=== PATIENT | female | born 1975 | race Caucasian/White ===

== ENCOUNTER 2018-10-13 13:23 | Observation (INO) | payer OTHER ==
--- OUTSIDE RECORDS SUMMARY | 2018-10-13 13:35 | XMS REPORT ---
:1975 Author Organization [facility] Address [address] [place] [address] Dr. George [address] [place] [address] Care Team Providers Name Role Phone Unavailable Unavailable Unavailable Problems This patient has no known problems. Allergies, Adverse Reactions, Alerts This patient has no known allergies or adverse reactions. Medications This patient has no known medications.
[2018-10-13 15:27] LABS: Absolute Lymphocytes (CBC) 3.3 K/uL (0.7-4.9); Basophils % 0.5 % (0-1.3); Eosinophils % 0.5 % (0-4.4); Hematocrit 41.9 % (36.0-45.0); Lymphocytes % 24.8 % (15.3-44.8); Monocytes % 7.3 % (3.3-12.3); RBC Red Blood Cell Count 4.66 M/uL (3.86-4.86)
[2018-10-13 15:41] LABS: Potassium 3.4 mmol/L (3.5-5.1)
[2018-10-13] MEDS ORDERED: ALBUTEROL 2.5 MG/3 ML NEB SOL IH PRN (15:42)
[2018-10-13] MEDS ORDERED: ONDANSETRON 4 MG/2 ML VIAL IV PRN (15:43)
[2018-10-13] MEDS ORDERED: CODEINE 30MG/APAP 300MG TAB PO PRN (15:46)
[2018-10-13 16:08] LABS: Urine Appearance CLEAR; Urine Bilirubin NEGATIVE (NEG); Urine Blood NEGATIVE (NEG); Urine Color YELLOW; Urine Glucose NEGATIVE (NEG); Urine Microscopic Reflex NO UMIC; Urine Protein NEGATIVE (NEG); Urine Specific Gravity >=1.030 (1.005-1.030); Urine Urobilinogen 0.2 mg/dL (0.2-1.0); Urine pH 5.5 (5.0-7.0)
[2018-10-13] MEDS: AZITHROMYCIN 500 MG/250 ML BAG IV SCH (16:50)
[2018-10-13] MEDS: METHYLPREDNISOLONE 125 MG INJ IV SCH (16:50)
[2018-10-13] MEDS: IPRATROPIUM BROM 0.5MG/2.5ML IH PRN ×2 (17:35→20:35)
--- NOTE | 2018-10-13 19:41 | EKG ---
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
[2018-10-13] MEDS: LEVALBUTEROL 1.25 MG/3 ML NEB NEB PRN (20:35)
[2018-10-13] MEDS: HYDROCODONE/CHLORPHEN 5 ML/OSYR PO SCH (20:45)
[2018-10-13] MEDS ORDERED: PHENOL 1.4% ORAL SPRAY 180ML MM PRN (21:36)
[2018-10-13] MEDS: TEMAZEPAM 15 MG CAP PO PRN (22:11)
[2018-10-14] MEDS: METHYLPREDNISOLONE 125 MG INJ IV SCH ×2 (00:15→08:57)
[2018-10-14] MEDS: AZITHROMYCIN 500 MG/250 ML BAG IV SCH ×3 (00:15→17:51)
[2018-10-14] MEDS ORDERED: LEVALBUTEROL 1.25 MG/3 ML NEB NEB SCH (02:00)
[2018-10-14] MEDS: HYDROCODONE/CHLORPHEN 5 ML/OSYR PO SCH ×2 (08:53→20:33)
[2018-10-14] MEDS: METOPROLOL TAR 25 MG TAB PO SCH (08:54)
[2018-10-14] MEDS: PREGABALIN 50 MG CAP PO SCH (08:54)
[2018-10-14] MEDS: IPRATROPIUM BROM 0.5MG/2.5ML IH PRN ×2 (11:55→21:14)
[2018-10-14] MEDS: LEVALBUTEROL 1.25 MG/3 ML NEB NEB PRN ×2 (11:55→21:14)
--- NOTE | 2018-10-14 19:13 | PN ---
Date of Progress Note: 10/14/2018 Subjective: Patient feels somewhat better today. She is still having cough, is mainly nonproductive . She denies dyspnea. Appetite has improved. She remained afebrile and sputum is in the process of being cultured. Depending on the results, I am going to repeat chest x-ray and CBC in the morning. The patient could be discharged on outpatient antibiotics. HR/MODL Voice ID: [id number] Report ID: [id number]
[2018-10-14] MEDS: TEMAZEPAM 15 MG CAP PO PRN (20:34)
[2018-10-15] MEDS: AZITHROMYCIN 500 MG/250 ML BAG IV SCH (01:00)
[2018-10-15 04:21] LABS: Absolute Lymphocytes (CBC) 2.5 K/uL (0.7-4.9); Basophils % 0.1 % (0-1.3); Lymphocytes % 15.7 % (15.3-44.8); MPV 8.6 fL (7.6-11.3); Monocytes % 8.3 % (3.3-12.3); RBC Red Blood Cell Count 3.98 M/uL (3.86-4.86)
[2018-10-15 04:29] LABS: BUN Blood Urea Nitrogen 13 mg/dL (7-18); Bicarbonate 28 mmol/L (21-32); Glucose Level 108 mg/dL (74-106); Potassium 3.9 mmol/L (3.5-5.1); Sodium Level 140 mmol/L (136-145)
[2018-10-15] MEDS: HYDROCODONE/CHLORPHEN 5 ML/OSYR PO SCH (08:14)
[2018-10-15] MEDS: PREGABALIN 50 MG CAP PO SCH (08:15)
[2018-10-15] MEDS: METOPROLOL TAR 25 MG TAB PO SCH (08:15)
--- NOTE | 2018-10-15 08:30 | HP ---
Date of Admission: 10/13/2018 Entrance Complaint: Cough, general malaise. History Of Present Illness: The patient presented to the office in the last week with the above-outl ined symptoms. The patient had called and placed on steroids and an inhaler and then I sa w her and placed her on antibiotics. However, her symptoms continued to increase and chest x-ray the day of admission showed pneumonia and was therefore decided to admit her. Past History: The patient has a long history of asthmatic bronchitis requiring inhalers. However, s he has never been hospitalized as such. Social History: She quit smoking about 6 years ago. Family History: Noncontributory. Social History: Noncontributory. Physical Examination: General: Patient is a middle-aged female with marked spasmodic cough with stable vital signs. Head and Neck: Normocephalic. HEENT: Pupils equal, reactive to light and accommodation. Fundi negative. Trachea midline. Thyroi d not palpable. ENT negative. Chest: High-pitched rhonchi both bases. Adequate air entry and movement bilaterally. Cardiovascular: PMI midclavicular line. Heart: Sounds normal. Peripheral pulses are present and equal bilaterally. Abdomen: No organomegaly. Bowel sounds present. Extremities: Slightly dehydrated. Good tone and movement bilaterally. Reflexes physiologic. Rectal and Pelvic: Deferred. Impression: 1.Pneumonia. 2.Dehydration. Plan: Patient will be admitted placed on IV antibiotics, IV inhalation therapy. HR/MODL Voice ID: [id number]
--- NOTE | 2018-10-15 08:31 | RAD REPORT ---
EXAM DESCRIPTION: RAD - Chest Pa And Lat (2 Views) - 10/15/2018 8:06 am CLINICAL HISTORY: Pneumonia, cough COMPARISON: October 13 TECHNIQUE: PA and lateral views of the chest were obtained. FINDINGS: The lungs are slightly underinflated. Right base stranding is still present. This could be persistent atelectasis or persistent minimal pneumonia. Heart size is normal and central vasculatu re is within normal limits. No pleural effusion or pneumothorax seen. No acute bony finding noted. No aortic abnormality. IMPRESSION: Stable chest examination. No change to the infiltrate or atelectasis changes in the righ t base.
[2018-10-15] MEDS: LEVALBUTEROL 1.25 MG/3 ML NEB NEB PRN (14:55)
[2018-10-15] MEDS: IPRATROPIUM BROM 0.5MG/2.5ML IH PRN (14:55)
[2018-10-15 17:20] VITALS: BMI 29.8
[2018-10-15 17:38] VITALS: BP 107/67; TEMP 97.6
[2018-10-15 17:57] VITALS: O2SAT 98
--- NOTE | 2018-10-15 23:59 | PN ---
The patient states she feels much better today. Her cough has improved significantly. No significan t change in the x-ray. Possibility of this being a chronic change with superimposed bronchial infect ion versus pneumonia was considered. Cultures negative at the present time. She can be discharged o n Zithromax. Continue on her inhaler. She will be seen in the office on Saturday for followup. Disch arged on Zithromax 500 mg p.o. and the albuterol inhaler. HR/MODL Voice ID: [id number] Report ID: [id number]
[2018-10-16] MEDS ORDERED: AZITHROMYCIN IV 500 MG in NA CHLORIDE 0.9% 250 ML IVPB SCH (01:00)
[2018-10-16] MEDS ORDERED: PANTOPRAZOLE 40MG TABLET PO SCH (15:13)
== END 2018-10-15 17:18 | disposition home or self-care (01) ==
LOC: 4TH 13:33
PROVIDERS: ADMIT Family Medicine; ATTEND Family Medicine
DX: J18.9 Pneumonia, unspecified organism (principal); E86.0 Dehydration; Z87.891 Personal history of nicotine dependence
CPT/HCPCS: 36415; 71046; 80048; 81003; 85025; 87070; 87077; 87186; 87205; 93005; 94640; G0378; G0379; J0456; J2930

== ENCOUNTER 2019-12-13 11:07 | Emergency (ER) | payer OTHER ==
--- OUTSIDE RECORDS SUMMARY | 2019-12-13 11:09 | XMS REPORT | Continuity of Care Document ---
:1975 Author Organization [facility] t Address [address] [place] [address] Care Team Providers Name Role Phone Ila Jiang MD Attending Clinician Problems This patient has no known problems. Allergies, Adverse Reactions, Alerts This patient has no known allergies or adverse reactions. Medications This patient has no known medications. Procedures This patient has no known procedures. Encounters Start End Encounter Admission Attending Care Care Encounter Source Date/Time Date/Time Type Type Clinicians Facility Department ID 2019-11-11 2019-11-11 Office MATTHEW Jiang [id number] 15:55:12 16:22:35 Visit [facility] [id number] Surgical [id number] Specialti [id number] [address] [place] Results This patient has no known results.
--- OUTSIDE RECORDS SUMMARY | 2019-12-13 11:09 | XMS REPORT | Summary of Care ---
:1975 Author Organization [facility] - [facility] Address [address] [place] [address] Care Team Providers Name Role Phone Martha Primary Care Provider Reason for Visit Reason Comments Follow-up Ankle Pain right ankle Encounter Details Date Type Department Care Team Description 11/11/2019 Office Visit [facility] Orthopaedic Delmar Jiang ight ankle pain, Surgery- Shilpi Thorpe MD unspecified chronicity [address], [address] (Primary Dx) [address] [place] [address] [place], [place] [phone] Allergies Active Allergy Reactions Severity Noted Date Comments Avocado Anaphylaxis, Hives, Swelling High 02/19/2018 Latex Rash 01/14/2015 documented as of this encounter (statuses as of 11/12/2019) Medications Medication Sig Dispensed Refills Start Date End Date Status omeprazole 40 mg capsule 1 03/20/2016 Active oxybutynin (DITROPAN XL) Take 1 tablet by 30 tablet 3 07/26/19 18 Active 10 mg 24 hr tablet mouth daily. LYRICA 50 mg capsule TAKE ONE CAPSULE 2 01/31/2018 Active BY MOUTH TWICE A DAY metoprolol (LOPRESSOR) Take by mouth 2 0 Active 10 mg/mL oral suspension (two) times daily. methylPREDNISolone 4 mg Take by mouth 21 Each 0 05/31/2018 Active tabletsIndications: SEE-INSTRUCTIONS Colitis . follow package directions dicyclomine (BENTYL) 20 Take 1 tablet by 20 tablet 0 9 Active mg tabletIndications: mouth 4 (four) Colitis times daily. documented as of this encounter (statuses as of 11/12/2019) Active Problems Problem Noted Date Right knee pain 04/18/2016 documented as of this encounter (statuses as of 11/12/2019) Social History Tobacco Use Types Packs/Day Years Used Date Former Smoker Smokeless Tobacco: Never Used Qu it: 08/13/2012 Alcohol Use Drinks/Week oz/Week Comments Yes 0 Standard drinks or equivalent 0.0 socailly Sex Assigned at Date Recorded Not on file Job Start Date Occupation Industry Not on file Not on file Not on file Travel History Travel Start Travel End No recent travel history available. COVID-19 Exposure Response Date Recorded In the last month, have you been in contact with No / Unsure 11/11/2019 2:19 PM CDT someone who was confirmed or suspected to have Coronavirus / COVID-19? documented as of this encounter Last Filed Vital Signs Vital Sign Reading Time Taken Comments Blood Pressure 132/89 11/11/2019 3:57 PM CDT Pulse - - Temperature - - Respiratory Rate 18 11/11/2019 3:57 PM CDT Oxygen Saturation - - Inhaled Oxygen Concentration - - Weight 83.9 kg (185 lb) 11/11/2019 3:57 PM CDT Height 165.1 cm (5' 5") 11/11/2019 3:57 PM CDT Body Mass Index 30.79 11/11/2019 3:57 PM CDT documented in this encounter Progress Notes Delmar Jiang MD - 11/11/2019 4:15 PM CDT Cc: Chief Complaint Patient presents with Follow-up Ankle Pain right ankle Nehal Snow is a 43 year old female. Ankle Pain Incident onset: 11/05/2019. [facility]: [facility] The injury mechanism was a twisting injury. The pain is present in the right ankle. The quality of the pain is described as aching and burning. The pain is at a severity of 6/10. The pain is moderate. The pain has been intermittent since onset. Associated symptoms include a loss of motion and muscle weakness. The symptoms are aggravated by movement and weight bearing. She has tried non-weight bearing, rest, elevation, ice and heat for the symptoms. The treatment provided mild relief. Allergies Nehal is allergic to avocado and latex. Medications Outpatient Medications Prior to Visit Medication Sig Dispense Refill dicyclomine (BENTYL) 20 mg tablet Take 1 tablet by mouth 4 (four) times daily. 20 tablet 0 methylPREDNISolone 4 mg tablets Take by mouth SEE-INSTRUCTIONS. follow package directions 21 Each 0 LYRICA 50 mg capsule TAKE ONE CAPSULE BY MOUTH TWICE A DAY 2 metoprolol (LOPRESSOR) 10 mg/mL oral suspension Take by mouth 2 (two) times daily. oxybutynin (DITROPAN XL) 10 mg 24 hr tablet Take 1 tablet by mouth daily. 30 tablet 3 omeprazole 40 mg capsule 1 No facility-administered medications prior to visit. Histories Past Medical History: Diagnosis Date Abnormal uterine bleeding Anxiety Breast disorder Depression Endometriosis Female infertility GERD (gastroesophageal reflux disease) HTN (hypertension) Hypothyroid Leiomyoma of uterus Pap smear abnormality of cervix 1997 Right knee pain 04/18/2016 Trauma Urinary incontinence Past Surgical History: Procedure Laterality Date ENDOMETRIAL ABLATION 10/2010 with Essure HYSTERECTOMY 06/2014 Social History Socioeconomic History Marital status: Spouse name: Not on file Number of children: Not on file Years of education: Not on file Highest education level: Not on file Occupational History Not on file Social Needs Financial resource strain: Not on file Food insecurity: Worry: Not on file Inability: Not on file Transportation needs: Medical: Not on file Non-medical: Not on file Tobacco Use Smoking status: Former Smoker Smokeless tobacco: Never Used Substance and Sexual Activity Alcohol use: Yes Alcohol/week: 0.0 standard drinks Comment: socailly Drug use: No Sexual activity: Yes Partners: Male, Female control/protection: Surgical Comment: Polyamourous relationship with third female Lifestyle Physical activity: Days per week: Not on file Minutes per session: Not on file Stress: Not on file Relationships Social connections: Talks on phone: Not on file Gets together: Not on file Attends [employer] service: Not on file Active member of club or organization: Not on file Attends meetings of clubs or organizations: Not on file Relationship status: Not on file Intimate partner violence: Fear of current or ex partner: Not on file Emotionally abused: Not on file Physically abused: Not on file Forced sexual activity: Not on file Other Topics Concern Not on file Social History Narrative No domestic abuse or violence. Family History Problem Relation Age of Onset Arthritis Mother Hypertension Mother High cholesterol Mother Hypertension Father High cholesterol Father Diabetes Maternal Grandmother Heart Maternal Grandmother High cholesterol Maternal Grandmother High cholesterol Maternal Grandfather Neurological Maternal Grandfather High cholesterol Paternal Grandmother Diabetes Paternal Grandfather High cholesterol Paternal Grandfather Diabetes Brother Asthma Brother Psychiatry Brother defects NoFHx Breast Cancer NoFHx Colon Cancer NoFHx Ovarian Cancer NoFHx Uterine Cancer NoFHx Cancer NoFHx Depression NoFHx Genetic NoFHx Mental retardation NoFHx Osteoporosis NoFHx Review of Systems Constitutional: Negative. HENT: Negative. Eyes: Negative. Respiratory: Negative. Breasts: Negative. Cardiovascular: Negative. Gastrointestinal: Negative. Genitourinary: Negative. Musculoskeletal: Positive for myalgias. Skin: Negative. Neurological: Negative. Psychiatric/Behavioral: Negative. Endocrine: Endocrine negative Vital Signs There were no vitals taken for this visit. Physical Exam Musculoskeletal: Right ankle: She exhibits decreased range of motion and ecchymosis. She exhibits no deformity, no laceration and normal pulse. Tenderness. AITFL tenderness found. General: Well-developed well-nourished oriented to person place and time HEENT normocephalic atraumatic atraumatic pupils equal round reactive to light extraocular muscles intact Cervical thoracic and lumbar spine without focal deficit normal kyphosis and lordosis Chest clear to auscultation and percussion Cardiovascular regular rate and rhythm without gallop rub or murmur soft without organomegaly Normal bowel sounds Neurologic: Focal myotome or dermatomal deficits Vascular: Intact symmetrical bilateral upper and lower extremities Skin without stasis varicosities or breakdown Extremities without cyanosis clubbing or edema Lymphatics no peripheral lymphedema Psych normal mood and affect. Neurovascular function is intact. To include brisk capillary refill warm pink skin active motor function and sensory function intact. Nursing note and vitals reviewed. Assessment/Plan Right Ankle Sprain Patient placed into cast boot and instructed to wear it for 3 weeks only removing to bathe. Follow up 3 weeks. documented in this encounter Plan of Treatment Date Type Specialty Care Team Description 12/03/2019 Office Visit Orthopedic Surgery Luma Jiang MD [address] [phone] Health Maintenance Due Date Last Done Comments DTaP,Tdap,and Td Vaccines (1 12/30/1987 - Tdap) Depression Screening 1988 Breast Cancer Screening 07/10/2018 07/10/2017, (MAMMOGRAM) 01/16/2010 INFLUENZA VACCINE (#1) 2019 PNEUMOCOCCAL 0-64 YEARS Aged Out No longe r eligible based COMBINED SERIES on patient's age to complete this to [facility] documented as of this encounter Results Not on filedocumented in this encounter Visit Diagnoses Diagnosis Right ankle pain, unspecified chronicity - Primary documented in this encounter aric Sarah (Home) [place] [address] (Work) documented as of this encounter
--- OUTSIDE RECORDS SUMMARY | 2019-12-13 11:09 | XMS REPORT | Summary of Care ---
:1975 Author Organization [facility] Address [address] [place] [address] Care Team Providers Name Role Phone Martha Primary Care Provider Reason for Referral Radiology Services (Routine) Status Reason Specialty Diagnoses / Referred By Referred To Procedures Contact Contact New Request Diagnostic Diagnoses Right ankle pain, unspecified chronicity Delmar Jiang Radiology Procedures XR ANKLE 3+ VW RIGHT Ila MD [address] [place] [address] Reason for Visit Reason Comments Xray RIGHT ANKLE Encounter Details Date Type Department Care Team Description 11/11/2019 Telephone [facility] Orthopaedic Delmar Jiang , Xray (RIGHT ANKLE ) Surgery- Shilpi CALL [address] [facility] [address] [place] [address] [address] [place], [place] [phone] Allergies Active Allergy Reactions Severity Noted Date Comments Avocado Anaphylaxis, Hives, Swelling High 02/19/2018 Latex Rash 01/14/2015 documented as of this encounter (statuses as of 11/11/2019) Medications Medication Sig Dispensed Refills Start Date [...] as of this encounter (statuses as of 11/11/2019) Active Problems Problem Noted Date Right knee pain 04/18/2016 documented as of this encounter (statuses as of 11/11/2019) Social History Tobacco Use Types Packs/Day Years [...] Travel End No recent travel history available. documented as of this encounter Last Filed Vital Signs Not on filedocumented in this encounter Plan of Treatment Date Type Specialty Care Team Description 11/11/2019 Office Visit Orthopedic Surgery Luma Jiang MD [address] [phone] Name Type Priority Associated Diagnoses Order S chedule XR ANKLE 3+ VW RIGHT IMAGING Routine Right ankle pain, Ex pected: 11/11/2019, unspecified chronicity Expir es: 11/10/2020 Health Maintenance Due Date Last Done Comments DTaP,Tdap,and Td Vaccines (1 12/30/1987 - Tdap) Depression Screening 1988 Breast Cancer Screening 07/10/2018 07/10/2017, (MAMMOGRAM) 01/16/2010 INFLUENZA VACCINE (#1) 2019 PNEUMOCOCCAL 0-64 YEARS Aged Out No longe r eligible based COMBINED SERIES on patient's age to complete this to [facility] documented as of this encounter Results Not on filedocumented in this encounter Visit Diagnoses Diagnosis Right ankle pain, unspecified chronicity - Primary documented in this encounter Insurance Payer Benefit Plan / Group Subscriber ID Effective Dates Phone Address Type [place] II [id number] 2017-Present HMO /PPO/POS documented as of this encounter
--- OUTSIDE RECORDS SUMMARY | 2019-12-13 11:09 | XMS REPORT | Summary of Care ---
:1975 Author Organization [facility] Address [address] [place] [address] Care Team Providers Name Role Phone Martha Primary Care Provider Reason for Referral Radiology Services (Routine) Status Reason Specialty Diagnoses / Referred By Referred To Procedures Contact Contact Closed Diagnostic Diagnoses Right ankle pain, unspecified chronicity Delmar Jiang Radiology Procedures XR ANKLE 3+ VW RIGHT MD Ila [address] [place] [address] Reason for Visit Radiology Services (Routine) Status Reason Specialty Diagnoses / Referred By Referred To Procedures Contact Contact Closed Diagnostic Diagnoses Right ankle pain, unspecified chronicity Delmar Jiang Radiology Procedures XR ANKLE 3+ VW RIGHT MD Ila [address] [place] [address] Encounter Details Date Type Department Care Team Description 11/11/2019 Hospital Encounter [facility] Tristan Jiang Arrived [place] [facility] [address] [place] [address] Dr merida [address] [place] [address] [address] [phone] [place] [address] Allergies Active Allergy Reactions Severity Noted [...] Office Visit Orthopedic Surgery Luma Jiang MD [address] [phone] Health Maintenance Due Date Last Done Comments DTaP,Tdap,and Td Vaccines (1 12/30/1987 - Tdap) Depression Screening 1988 Breast Cancer Screening 07/10/2018 07/10/2017, (MAMMOGRAM) 01/16/2010 INFLUENZA VACCINE (#1) 2019 PNEUMOCOCCAL 0-64 YEARS Aged Out No longe r eligible based COMBINED SERIES on patient's age to complete this to pic documented as of this encounter Procedures Procedure Name Priority Date/Time Associated Diagnosis Comme nts XR ANKLE 3+ VW Routine 11/11/2019 2:45 PM Right ankle pain, R esults for this RIGHT CDT unspecified procedure are i n chronicity the results section. documented in this encounter Results XR ANKLE 3+ VW RIGHT (11/11/2019 2:45 PM CDT) Specimen Narrative Performed At HISTORY: Pain. PACS/VR/DOSE FINDINGS: AP, lateral, oblique views of right ankle are obtained and compared to 08/02/2018 study. Ankle mortise is intact. No talar dome lesion visualized. No acute fracture or disloca tion. No significant changes of arthritis or aggressive bone lesions seen. No ankle [place] int effusion. No heel spur. CONCLUSIONS: Normal study. Procedure Note [facility], Radiant Results Inft User - 2019 2:47 PM CDT HISTORY: Pain. FINDINGS: AP, lateral, oblique views of right ankle are obtained and compared to 08/02/2018 study. Ankle morti se is intact. No talar dome lesion visualized. No acute fracture or disloca tion. No significant changes of arthritis or aggressive bone lesions see n. No ankle joint effusion. No heel spur. CONCLUSIONS: Normal study. Performing Organization Address City/State/Zipcode Phone Number PACS/VR/DOSE documented in this encounter Visit Diagnoses Diagnosis Right ankle pain, unspecified chronicity documented in this encounter aric Sarah (Home) [place] [address] (Work) documented as of this encounter
--- OUTSIDE RECORDS SUMMARY | 2019-12-13 11:09 | XMS REPORT | Summary of Care ---
:1975 Author Organization [facility] Address [address] [place] [address] Care Team Providers Name Role Phone Martha Primary Care Provider Reason for Visit Reason Comments Follow-up Ankle Pain right ankle Encounter Details Date Type Department Care Team Description 11/11/2019 Office Visit [facility] Orthopaedic Delmar Jiang ight ankle pain, Surgery- Shilpi Thorpe MD unspecified chronicity [address], [address] (Primary [address]x) [place] [address] [place] [address] [address] [place], [place] [phone] Allergies Active Allergy Reactions Severity Noted Date [...] Incident onset: 11/05/2019. Incident location: [facility] The injury mechanism was a twisting injury. [...] file Gets together: Not on file Attends gnosticist service: Not on file Active member of [...] Orthopedic Surgery Luma Jiang MD [address] [phone] Health Maintenance Due Date Last Done Comments DTaP,Tdap,and Td Vaccines (1 12/30/1987 - Tdap) Depression Screening 1988 Breast Cancer Screening 07/10/2018 07/10/2017, (MAMMOGRAM) 01/16/2010 INFLUENZA VACCINE (#1) 2019 PNEUMOCOCCAL 0-64 YEARS Aged Out No longe r eligible based COMBINED SERIES on patient's age to complete this to [facility] documented as of this encounter Results Not on filedocumented in this encounter Visit Diagnoses Diagnosis Right ankle pain, unspecified chronicity - Primary documented in this encounter aric Sarah (Home) [place] [address] (Work) documented as of this encounter
[2019-12-13 11:42] LABS: Absolute Lymphocytes (CBC) 2.1 K/uL (0.7-4.9); Basophils % 0.5 % (0-1.3); Hematocrit 38.5 % (36.0-45.0); Lymphocytes % 29.8 % (15.3-44.8); MPV 8.6 fL (7.6-11.3); RBC Red Blood Cell Count 4.33 M/uL (3.86-4.86)
[2019-12-13 11:46] LABS: Protime INR 0.98
[2019-12-13 12:08] LABS: ALT/SGPT 33 U/L (12-78); AST/SGOT 18 U/L (15-37); Albumin 3.4 g/dL (3.4-5.0); Alkaline Phosphatase 71 U/L (45-117); BUN Blood Urea Nitrogen 11 mg/dL (7-18); Bicarbonate 26 mmol/L (21-32); Bilirubin Direct < 0.1 mg/dL (0-0.2); Bilirubin Total 0.2 mg/dL (0.2-1.0); Glucose Level 96 mg/dL (74-106); Lipase 120 U/L (73-393); Magnesium 1.9 mg/dL (1.8-2.4); NT PRO-BNP 36 pg/mL (<125); Potassium 3.5 mmol/L (3.5-5.1); Protein, Total 7.5 g/dL (6.4-8.2); Sodium Level 140 mmol/L (136-145); Troponin (Emerg Dept Use Only) < 0.02 ng/mL (0.0-0.045)
[2019-12-13] MEDS ORDERED: ACETAMINOPHEN 325 MG TABLET ONE (12:11)
--- NOTE | 2019-12-13 13:01 | RAD REPORT ---
EXAM DESCRIPTION: RAD - Chest Single View - 12/13/2019 12:14 pm CLINICAL HISTORY: CHEST PAIN COMPARISON: Two view chest April 2019 TECHNIQUE: AP portable chest image was obtained 12/13/2019 12:14 pm . FINDINGS: Lung volumes are low. No peripheral mass consolidation. Low lung volumes and under penetra chito technique cause accentuated interstitial pattern. This could mask mild interstitial edema or infi ltrate. Heart and vasculature are normal. No measurable pleural effusion and no pneumothorax. No acut e bony abnormality seen. No acute aortic findings suspected. IMPRESSION: Limited portable study shows no focal lung parenchymal process. Low lung volumes and under penetrated technique could mask early edema or infiltrate.
--- NOTE | 2019-12-13 14:20 | ER ---
Nurse's Notes [facility] Name: Nehal Snow Age: 43 yrs Sex: Female : 1975 Arrival Date: 12/13/2019 Time: 11:13 Bed 2 Private MD: Diagnosis: Chest pain on breathing Presentation: 12/12 11:13 Chief complaint: EMS states: Substernal chest pain and SOB that started this morning. 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 Coronavirus screen: At this time, the client does not indicate any symptoms associated with coronavirus-19. Ebola Screen: No symptoms or risks identified at this time. Initial Sepsis Screen: Does the patient meet any 2 criteria? No. Patient's initial sepsis screen is negative. Does the patient have a suspected source of infection? No. Patient's initial sepsis screen is negative. Risk Assessment: Do you want to hurt yourself or someone else? Patient reports no desire to harm self or others. Onset of symptoms was December 13, 2019. 11:13 Method Of Arrival: EMS: [facility] hb 11:13 Acuity: DESMOND 3 hb Triage Assessment: 11:17 General: Appears in no apparent distress. Behavior is calm, cooperative. Pain: Denies hb pain. EENT: No signs and/or symptoms were reported regarding the EENT system. Neuro: Level of Consciousness is awake, alert, obeys commands, Oriented to person, place, time, situation. Cardiovascular: Capillary refill < 3 seconds Patient's skin is warm and dry. Rhythm is regular. Respiratory: Airway is patent Respiratory effort is even, unlabored, Respiratory pattern is regular, symmetrical. GI: No signs and/or symptoms were reported involving the gastrointestinal system. : No signs and/or symptoms were reported regarding the genitourinary system. Derm: Skin is pink, warm \T\ dry. Musculoskeletal: No signs and/or symptoms reported regarding the musculoskeletal system. 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 - Social history:: Smoking status: Patient reports the use of cigarette tobacco products, smokes one-half pack cigarettes per day, Patient/guardian denies using alcohol, street drugs, The patient lives with family. - Family history:: not pertinent. - Hospitalizations: : No recent hospitalization is reported. Screenin:18 Abuse screen: Denies threats or abuse. Denies injuries from another. Nutritional hb screening: No deficits noted. Tuberculosis screening: No symptoms or risk factors identified. Fall Risk None identified. Assessment: 11:18 General: see triage. hb 12:00 Reassessment: Patient appears in no apparent distress at this time. No changes from hb previously documented assessment. Patient is alert, oriented x 3, equal unlabored respirations, skin warm/dry/pink. 13:00 Reassessment: Patient appears in no apparent distress at this time. No changes from hb previously documented assessment. Patient and/or family updated on plan of care and expected duration. Pain level reassessed. Patient is alert, oriented x 3, equal unlabored respirations, skin warm/dry/pink. 14:00 Reassessment: Patient appears in no apparent distress at this time. Patient and/or hb family updated on plan of care and expected duration. Pain level reassessed. Patient is alert, oriented x 3, equal unlabored respirations, skin warm/dry/pink. Patient states symptoms have improved. Vital Signs: 11:13 BP 154 / 89; Pulse 74; Resp 16; Temp 98.3; Pulse Ox 100% on R/A; Weight 83.91 kg; hb Height 5 ft. 5 in. (165.10 cm); Pain 0/10; 12:23 BP 116 / 78; Pulse 79; Resp 16; Pulse Ox 98% ; ll1 13:30 BP 117 / 80; Pulse 74; Resp 15; Pulse Ox 97% on R/A; hb 14:30 BP 118 / 80; Pulse 73; Resp 16; Pulse Ox 99% ; Pain 0/10; hb 11:13 Body Mass Index 30.79 (83.91 kg, 165.10 cm) hb ED Course: 11:13 Patient arrived in ED. hb 11:15 Efren Ash MD is Attending Physician. ma2 11:15 Patient maintains SpO2 saturation greater than 95% on room air. hb 11:15 Maintain EMS IV. Dressing intact. Good blood return noted. Site clean \T\ dry. Gauge \T\ hb site: 18g RAC. 11:16 Triage completed. hb 11:17 Arm band placed on. hb 11:18 Patient has correct armband on for positive identification. Bed in low position. Call hb light in reach. Side rails up X 1. quality assurance monitor chassis on. Pulse ox on. NIBP on. 11:23 EKG done, by ED staff, reviewed by Efren Ash MD. [facility] 11:30 Initial lab(s) drawn, by [facility], sent to lab. [facility] 12:14 XRAY Chest (1 view) In Process Unspecified. EDMS 12:46 Courtney Vargas, RN is Primary Nurse. hb 14:42 No provider procedures requiring assistance completed. IV discontinued, intact, hb bleeding controlled, No redness/swelling at site. Administered Medications: No medications were administered Outcome: 14:20 Dis[address] ordered by . [facility] 14:42 Discharged to home ambulatory. hb 14:42 Condition: stable 14:42 Discharge instructions given to patient, Instructed on discharge instructions, follow up and referral plans. medication usage, Demonstrated understanding of instructions, follow-up care, medications, Prescriptions given X 1. 14:43 Patient left the ED. hb Signatures: Dispatcher [employer] EDIN Courtney Vargas, RN RN Prachi Leyva [facility] Efren Ash MD MD ma2 Lewis, Lynsay, RN RN ll1
--- NOTE | 2019-12-13 14:20 | EDPHYS ---
Physician Documentation [facility] Name: Nehal Snow Age: 43 yrs Sex: Female : 1975 Arrival Date: 12/13/2019 Time: 11:13 Bed 2 Private MD: ED Physician Efren Ash HPI: 12/12 13:32 This 43 yrs old Female presents to ER via EMS with complaints of Chest Pain. ma2 13:32 The patient or guardian reports chest pain that is located primarily in the anterior ma2 chest wall. Onset: gradually, 1 day(s) ago. Associated signs and symptoms: Pertinent negatives: cough, headache, lower extremity swelling, lightheadedness. The chest pain is described as aching. Duration: The patient or guardian reports multiple episodes. Severity of pain: At its worst the pain was very mild in the emergency department the pain is unchanged. The patient has experienced similar episodes in the past. 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 - Social history:: Smoking status: Patient reports the use of cigarette tobacco products, smokes one-half pack cigarettes per day, Patient/guardian denies using alcohol, street drugs, The patient lives with family. - Family history:: not pertinent. - Hospitalizations: : No recent hospitalization is reported. ROS: 13:32 Constitutional: Negative for fever, chills, and weight loss. ma2 13:32 All other systems are negative. Exam: 13:32 Constitutional: This is a well developed, well nourished patient who is awake, alert, ma2 and in no acute distress. ENT: Nares patent. No nasal discharge, no septal abnormalities noted. Tympanic membranes are normal and external auditory canals are clear. Oropharynx with no redness, swelling, or masses, exudates, or evidence of obstruction, uvula midline. Mucous membranes moist. Neck: Trachea midline, no thyromegaly or masses palpated, and no cervical lymphadenopathy. Supple, full range of motion without nuchal rigidity, or vertebral point tenderness. No Meningismus. Chest/axilla: Normal chest wall appearance and motion. + lateral and anterior tender with no deformity. No lesions are appreciated. Cardiovascular: Regular rate and rhythm with a normal S1 and S2. No gallops, murmurs, or rubs. Normal PMI, no JVD. No pulse deficits. Respiratory: Lungs have equal breath sounds bilaterally, clear to auscultation and percussion. No rales, rhonchi or wheezes noted. No increased work of breathing, no retractions or nasal flaring. Abdomen/GI: Soft, non-tender, with normal bowel sounds. No distension or tympany. No guarding or rebound. No evidence of tenderness throughout. MS/ Extremity: Pulses equal, no cyanosis. Neurovascular intact. Full, normal range of motion. Neuro: Awake and alert, GCS 15, oriented to person, place, time, and situation. Cranial nerves II-XII grossly intact. Motor strength 5/5 in all extremities. Sensory grossly intact. Cerebellar exam normal. Normal gait. Vital Signs: 11:13 BP 154 / 89; Pulse 74; Resp 16; Temp 98.3; Pulse Ox 100% on R/A; Weight 83.91 kg; hb Height 5 ft. 5 in. (165.10 cm); Pain 0/10; 12:23 BP 116 / 78; Pulse 79; Resp 16; Pulse Ox 98% ; ll1 13:30 BP 117 / 80; Pulse 74; Resp 15; Pulse Ox 97% on R/A; hb 14:30 BP 118 / 80; Pulse 73; Resp 16; Pulse Ox 99% ; Pain 0/10; hb 11:13 Body Mass Index 30.79 (83.91 kg, 165.10 cm) hb MDM: 11:15 Patient medically screened. ma2 13:32 Differential diagnosis: chest wall pain, costochondritis, gastritis, gastroesophageal ma2 reflux disease (GERD). Data reviewed: vital signs, nurses notes. Counseling: I had a detailed discussion with the patient and/or guardian regarding: the historical points, exam findings, and any diagnostic results supporting the discharge/admit diagnosis, the presence of at least one elevated blood pressure reading (>120/80) during this emergency department visit, the need for outpatient follow up. Response to treatment: the patient's symptoms have markedly improved after treatment. 14:20 YUE Risk Score: TOTAL SCORE = 0. ma2 12/12 11:16 Order name: Basic Metabolic Panel; Complete Time: 12:44 ma2 12/12 11:16 Order name: CBC with Diff; Complete Time: 12:44 ma2 12/12 11:16 Order name: LFT's; Complete Time: 12:44 ma2 12/12 11:16 Order name: Magnesium; Complete Time: 12:44 ma2 12/12 11:16 Order name: NT PRO-BNP; Complete Time: 12:44 ma2 12/12 11:16 Order name: PT-INR; Complete Time: 12:44 ma2 12/12 11:16 Order name: Troponin (emerg Dept Use Only); Complete Time: 12:44 ma2 12/12 11:16 Order name: XRAY Chest (1 view); Complete Time: 13:32 ma2 12/12 11:16 Order name: EKG; Complete Time: 11:16 ma2 12/12 11:16 Order name: Cardiac monitoring; Complete Time: 11:24 ma2 12/12 11:16 Order name: EKG - Nurse/Tech; Complete Time: 11:24 ma2 12/12 11:50 Order name: Lipase; Complete Time: 12:44 EDMS 12/12 13:34 Order name: Troponin (emerg Dept Use Only); Complete Time: 14:19 ma2 12/12 11:16 Order name: IV Saline Lock; Complete Time: 11:32 ma2 12/12 11:16 Order name: Labs collected and sent; Complete Time: 11:32 ma2 12/12 11:16 Order name: O2 Per Protocol; Complete Time: 11:26 ma2 12/12 11:16 Order name: O2 Sat Monitoring; Complete Time: 11:26 ma2 Administered Medications: No medications were administered Disposition: 12/13/19 14:20 Discharged to Home. Impression: Chest pain on breathing. - Condition is Stable. - Discharge Instructions: Chest Wall Pain. - Prescriptions for Diclofenac Sodium 75 mg Oral Tablet Sustained Release - take 1 tablet by ORAL route 2 times per day; 30 tablet. - Medication Reconciliation Form, Thank You Letter, Antibiotic Education, Prescription Opioid Use form. - Follow up: Private Physician; When: Tomorrow; Reason: Continuance of care. Signatures: Dispatcher [facility]ney Taylor RN RN hb Alzahri, Mohammad, MD MD ma2 Corrections: (The following items were deleted from the chart) 11:50 11:42 LIPASE+[id number].LAB.BRZ ordered. EDPR EDMS 14:43 14:20 12/13/2019 14:20 Discharged to Home. Impression: Chest pain on breathing. hb Condition is Stable. Prescriptions for Diclofenac Sodium 75 mg Oral Tablet Sustained Release - take 1 tablet by ORAL route 2 times per day; 30 tablet. and Forms are Medication Reconciliation Form, Thank You Letter, Antibiotic Education, Prescription Opioid Use. Follow up: Private Physician; When: Tomorrow; Reason: Continuance of care. ma2
[2019-12-16 17:25] VITALS: TEMP 98.3
[2019-12-16 17:36] VITALS: BP 118/80; O2SAT 99
== END 2019-12-13 14:43 | disposition home or self-care (01) ==
LOC: ER 11:07
DX: R07.1 Chest pain on breathing (principal)
CPT/HCPCS: 36415; 71045; 80048; 80076; 83690; 83735; 83880; 84484; 85025; 85610; 93005; 99285

== ENCOUNTER 2023-08-08 10:33 | Emergency (ER) | payer OTHER ==
--- OUTSIDE RECORDS SUMMARY | 2023-08-08 10:36 | XMS REPORT | Continuity of Care Document ---
Author Name Unknown Address [address] [facility] [place] [address] [facility] llcect Address [address] [facility] [address] [place] [address] Care Team Providers Care [employer] Name Role Phone ERIK BRUNER Primary Care Physician Unavailab flex [email or web address]_S Attending Clinician UnavailVianca Andrade CENTRAL SCHEDULER-FURNACE FIRER Attending Clinician Adelita JOANN Wood Attending Clinician Unavailable Joann Thompson DO Attending Clinician [phone] John Mckoy Attending Clinician Unavailable Willie Andrea DO Attending Clinician [phone] Aleida Morales Attending Clinician [phone] RADIOLOGY Attending Clinician Unavailable ALEIDA POLLARD Attending Clinician Unavailable Deni Jones MD Attending Clinician [phone] Lab, Adc Fam Pob I Attending Clinician Unavailab Jeannine Ricci Attending Clinician [phone] JEANNINE JACKSON Attending Clinician Unavailable Carmen Driver MD Attending Clinician [phone] DENI JONES Attending Clinician Unavailabl e Doctor Unassigned, [place] Attending Clinician U navailable Gramm VALERIA, Julienne Nassar Attending Clinician [phone] [email or web address]_Kadiyala_S Admitting Clinician Unavaila Vianca Mccauley APRN-FURNACE FIRER Admitting Clinician Adelita John Valles Admitting Clinician Unavailable Payers Payer Name Policy Type Policy Number Effective Date Expirati on Date Source [facility] [id number] 2017 00:00:00 [facility] [id number] 2017 00:00:00 Problems Condition Name Condition Details Condition Category Status Onset Date Resolution Date Last Treatment Date Treating Clinician Comments Source Right knee pain Right knee pain Disease Active 04-18 00:00: 00 [facility] Right knee pain Right knee pain Disease Active 04-18 00:00: 00 [facility] Allergies, Adverse Reactions, Alerts Allergy Name Allergy Type Status Severity Reaction(s) Onset Date Inactive Date Treating Clinician Comments Source Avocado Propensi ty to adverse reaction s Active Swelling 2017-04 00:00: 00 [facility] AVOCADO DRUG INGREDI Active High Anaphylaxis 2017-04 00:00: 00 [facility] LATEX DRUG INGREDI Active Rash 2014-04 00:00: 00 [facility] Latex Propensi ty to adverse reaction s Active Rash 2014-04 00:00: 00 [facility] Social History Social Habit Start Date Stop Date Quantity Comments Source History of tobacco use Current smoker [facility] to SARS-CoV-2 (event) Not sure [facility] Alcohol intake 2020-03-16 00:00:00 2020-03-16 00:00:00 0 /d [facility] History of Social function 2019-12-03 00:00:00 2019-12-03 00:00:00 [facility] Tobacco use and exposure 2016-05-16 00:00:00 2016-05-16 00:00:00 Smokeless tobacco non-user [facility] Alcohol Comment 2016-04-18 00:00:00 2016-04-18 00:00:00 socailly [facility] Sex Assigned At 1975 00:00:00 1975 00:00:00 [facility] Smoking Status Start Date Stop Date Source Ex-smoker 2016-05-16 00:00:00 2016-05-16 [facility]00[facility] Medications Ordered Medication Name Filled Medication Name Start Date Stop Date Current Medication? Ordering Clinician Indication Dosage Frequency Signature (SIG) Comments Components Source metoclopram sarah HCl (REGLAN) tablet 10 mg 01-09 12:30: 00 Yes 10mg 10 mg, Oral, AC, First dose on Sat01/09/23 at 0730, Until Discontinu ed, Routine [facility] ondansetron (ZOFRAN-ODT ) disintegrat ing tablet 8 mg 01-09 03:30: 00 01-09 02:40 :00 No 8mg 8 mg, Oral, ONCE, 1 dose, On Sat01/08/23 at 2230, Routine [facility] metoclopram sarah HCl 10 mg tablet 01-08 00:00: 00 Yes [id number] 10mg Take 1 tablet by mouth every 6 (six) hours. [facility] meloxicam (MOBIC) 15 mg tablet 2019-04 00:00: 00 Yes 15mg Take 1 tablet by mouth daily. [facility] diphenhydrA MINE (BENADRYL) injection 25 mg 01-03 03:30: 00 01-03 02:59 :00 No 25mg 25 mg, Slow IV Push, ONCE, 1 dose, 01/03/20 at 2230, STAT [facility] metoclopram sarah HCl (REGLAN) injection 10 mg 01-03 03:30: 00 01-03 02:59 :00 No 10mg 10 mg, Slow IV Push, ONCE, 1 dose, 01/03/20 at 2230, VALDEZ [facility] KCL (KLOR-CON M20) tablet 40 mEq 01-03 02:45: 00 01-03 02:11 :00 No 40meq 40 mEq, Oral, ONCE, 1 dose, 01/03/20 at 2145, Routine [facility] ketorolac (TORADOL) injection 30 mg 01-03 02:15: 01-03 01:18 :00 No 30mg 30 mg, Slow IV Push, ONCE, 1 dose, 01/03/20 at 211, Routine
produce team member approving Restricted medication : CARMEN DRIVER [facility] ondansetron (ZOFRAN (PF)) injection 4 mg 01-03 02:15: 01-03 01:18 :00 No 4mg 4 mg, Slow IV Push, ONCE, 1 dose, 01/03/20 at 211, VALDEZ [facility] pantoprazol e (PROTONIX) 40 mg in NaCl 0.9% (NS) 100 mL MINI-BAG 01-03 02:15: 00 01-03 01:33 :00 No 40mg 40 mg, IV Piggyback, ONCE, 1 dose, 01/03/20 at 211, 100 mL [facility] iohexol (OMNIPAQUE 350 BULK-150 mL) injection 120 mL 01-03 02:00: 00 01-03 02:00 :00 No 120mL 120 mL, Intravenou s, ONCE, 1 dose, 01/03/20 at 211, Routine [facility] traMADoL 100 mg Tab 01-02 00:00: 00 Yes [id number] 1{tbl} Take 1 tablet by mouth every 6 (six) hours as needed for Pain (scale 7-10). [facility] dicyclomine 20 mg tablet 01-02 00:00: 00 Yes [id number] 20mg Take 1 tablet by mouth every 6 (six) hours as needed for Abdominal pain. [facility] ondansetron (ZOFRAN) 4 mg tablet 9 00:00: 00 Yes [id number] 4mg Take 1 tablet by mouth every 8 (eight) hours as needed for Nausea and Vomiting (N/V). [facility] methylPREDN ISolone 4 mg tablets 05-31 00:00: 00 Yes [id number] Take by mouth SEE-INSTRU CTIONS. follow package directions [facility] dicyclomine (BENTYL) 20 mg tablet 16 00:00: 00 Yes [id number] 20mg Take 1 tablet by mouth 4 (four) times daily. [facility] metoprolol (LOPRESSOR) 10 mg/mL oral suspension 05-19 21:58: 09 Yes Take by mouth 2 (two) times daily. [facility] metoprolol (LOPRESSOR) 10 mg/mL oral suspension 05-19 15:58: 09 Yes Take by mouth 2 (two) times daily. [facility] LYRICA 50 mg capsule 2017-04 0 00:00: 00 Yes TAKE ONE CAPSULE BY MOUTH TWICE A DAY [facility] oxybutynin (DITROPAN XL) 10 mg 24 hr tablet 07-25 00:00: 00 Yes 10mg Take 1 tablet by mouth daily. [facility] omeprazole 40 mg capsule 2015-04 00:00: 00 Yes [facility] Vital Signs Vital Name Observation Time Observation Value Comments S ource Systolic blood pressure 2023-01-09 04:36:00 129 mm[Hg] [facility] Diastolic blood pressure 2023-01-09 04:36:00 77 mm[Hg] [facility] Heart rate 2023-01-09 04:36:00 77 [facility] Body temperature 2023-01-09 04:36:00 37.06 Sharee [facility] Respiratory rate 2023-01-09 04:36:00 16 /min [facility] Oxygen saturation in Arterial blood by Pulse oximetry 2023-01-09 04:36:00 100 /min [facility] Body height 2023-01-09 01:42:00 162.6 cm [facility] Body weight 2023-01-09 01:42:00 74.844 kg [facility] BMI 2023-01-09 01:42:00 28.32 kg/m2 [facility] Systolic blood pressure 2020-03-16 19:23:00 126 mm[Hg] [facility] Diastolic blood pressure 2020-03-16 19:23:00 83 mm[Hg] [facility] Heart rate 2020-03-16 19:23:00 94 /min [facility] Body height 2020-03-16 19:23:00 165.1 cm [facility] Body weight 2020-03-16 19:23:00 81.647 kg [facility] BMI 2020-03-16 19:23:00 29.95 kg/m2 [facility] Systolic blood pressure 2020-01-04 02:59:05 116 mm[Hg] [facility] Diastolic blood pressure 2020-01-04 02:59:05 81 mm[Hg] [facility] Heart rate 2020-01-04 02:59:05 76 /min [facility] Respiratory rate 2020-01-04 02:59:05 18 /min [facility] Oxygen saturation in Arterial blood by Pulse oximetry 2020-01-04 02:59:05 99 /min [facility] Body temperature 2020-01-04 00:22:00 36.89 Shaere [facility] Body height 2020-01-04 00:22:00 165.1 cm [facility] Body weight 2020-01-04 00:22:00 83.915 kg [facility] BMI 2020-01-04 00:22:00 30.79 kg/m2 [facility] Systolic blood pressure 2019-12-03 15:40:00 124 mm[Hg] [facility] Diastolic blood pressure 2019-12-03 15:40:00 78 mm[Hg] [facility] Heart rate 2019-12-03 15:40:00 89 /min [facility] Body height 2019-12-03 15:35:00 165.1 cm [facility] Body weight 2019-12-03 15:35:00 83.915 kg [facility] BMI 2019-12-03 15:35:00 30.79 kg/m2 [facility] Systolic blood pressure 2019-11-11 20:57:00 132 mm[Hg] [facility] Diastolic blood pressure 2019-11-11 20:57:00 89 mm[Hg] [facility] Respiratory rate 2019-11-11 20:57:00 18 /min [facility] Body height 2019-11-11 20:57:00 165.1 cm [facility] Body weight 2019-11-11 20:57:00 83.915 kg [facility] BMI 2019-11-11 20:57:00 30.79 kg/m2 [facility] Systolic blood pressure 2019-11-11 20:57:00 132 mm[Hg] [facility] Diastolic blood pressure 2019-11-11 20:57:00 89 mm[Hg] [facility] Respiratory rate 2019-11-11 20:57:00 18 /min [facility] Body height 2019-11-11 20:57:00 165.1 cm [facility] Body weight 2019-11-11 20:57:00 83.915 kg [facility] BMI 2019-11-11 20:57:00 30.79 kg/m2 [facility] Procedures Procedure Date / Time Performed Performing Clinicia n Source LIPASE 2023-01-09 02:57:00 Joann Thompson [facility] COMP. METABOLIC PANEL ([id number]) 2023-01-09 02:57:00 Joann Thompson [facility] CBC WITH DIFF 2023-01-09 02:57:00 Joann Thompson [facility] NOTICE OF PRIVACY PRACTICES 2023-01-09 01:38:06 Doctor Unassigned, [place] [facility] CONSENT/REFUSAL FOR DIAGNOSIS AND TREATMENT 2023-01-09 01:37:49 Doctor Unassigned, [place] [facility] CT ABDOMEN PELVIS W CONTRAST 2020-01-04 02:01:38 Carmen Driver [facility] LIPASE 2020-01-04 01:15:00 Carmen Driver [facility] TROPONIN I 2020-01-04 01:15:00 Carmen Driver [facility] COMP. METABOLIC PANEL ([id number]) 2020-01-04 01:15:00 Carmen Driver [facility] CBC WITH DIFF 2020-01-04 01:15:00 Carmen Driver [facility] EKG-12 LEAD 2020-01-04 01:13:30 Carmen Driver [facility] REFERRAL- REQUEST/RESPONSE 2019-12-16 05:01:00 Doctor Unassigned, [place] [facility] REFERRAL- REQUEST/RESPONSE 2019-12-03 05:01:00 Doctor Unassigned, [place] [facility] XR ANKLE 3+ VW RIGHT 2019-11-11 19:45:16 Luma Jones [facility] REFERRAL- REQUEST/RESPONSE 2018-12-24 05:01:00 Doctor Unassigned, [place] [facility] REFERRAL- REQUEST/RESPONSE 2018-12-01 05:01:00 Doctor Unassigned, [place] [facility] EXTERNAL PROVIDER RECORDS 2018-11-23 05:01:00 Doctor Unassigned, [place] [facility] Encounters Start Date/Time End Date/Time Encounter Type Admission Type [facility] Care Department Encounter ID Source 2021-02-10 18:29:16 Emergency [facility] [id number] [facility] 2023-03-28 00:00:00 2023-03-28 00:00:00 Outpatient GC_GCBZW_Ka diyala_S PRIV PRIV [id number] [facility] 2023-03-16 00:00:00 2023-03-16 00:00:00 Outpatient GC_GCBZW_Ka diyala_S PRIV PRIV [id number] [facility] 2023-03-06 12:00:00 2023-03-06 12:00:00 Outpatient Vianca Duncan [facility] [id number] [facility] 2023-02-28 00:00:00 2023-02-28 00:00:00 Outpatient GC_GCBZW_Ka diyala_S PRIV PRIV [id number] [facility] 2023-02-05 00:00:00 2023-02-05 00:00:00 Outpatient PRIV PRIV [id number] [facility] 2023-01-08 20:48:00 2023-01-08 23:46:00 Emergency X JOANN THOMPSON [facility] ERT [id number] [facility] 2023-01-08 20:48:00 2023-01-08 23:46:00 Emergency Joann Thompson [facility] 1.2.840.114 350.1.13.10 4.2.7.2.686 [id number] [facility] 2021-05-17 12:00:00 2021-05-17 12:00:00 Outpatient John Rodriguez [facility] [id number] [facility] 2020-06-30 00:00:00 2020-06-30 00:00:00 Patient Outreach Willie Andrea [facility] 1.2.840.114 350.1.13.10 4.2.7.2.686 [id number] [facility] 2020-03-18 00:00:00 2020-03-18 00:00:00 Telephone Aleida Pollard [facility] 1.2.840.114 350.1.13.10 4.2.7.2.686 [id number] [facility] 2020-03-17 00:00:00 2020-03-17 00:00:00 Outpatient R CAPRICE [facility] [id number] [facility] 2020-03-16 16:15:00 2020-03-16 16:15:00 Outpatient R ALEIDA POLLARD [facility] [id number] [facility] 2020-03-16 13:07:11 2020-03-16 13:29:55 Office Visit Deni Jones [facility] 1.114 350.1.13.10 4.2.7.2.686 [id number] [facility] 2020-02-23 00:00:00 2020-02-23 00:00:00 Outpatient R RADIOLOGY [facility] [id number] [facility] 2020-01-27 13:18:10 2020-01-27 13:38:10 Laboratory Only Lab, Adc [facility]am [facility]ob [facility] 1.114 350.1.13.10 4.2.7.2.686 [id number] [facility] 2020-01-27 13:20:00 2020-01-27 13:20:00 Outpatient R JEANNINE JACKSON [facility] [id number] [facility] 2020-01-03 19:31:00 2020-01-03 22:25:00 Emergency Carmen Driver [facility] 1.114 350.1.13.10 4.2.7.2.686 [id number] [facility] 2019-12-17 13:23:34 2019-12-17 13:38:22 Office Visit Deni Jones [facility] Surgical [facility] 1.114 350.1.13.10 4.2.7.2.686 [id number] [facility] 2019-12-17 13:30:00 2019-12-17 13:30:00 Outpatient R DENI JONES [facility] [id number] [facility] 2019-12-16 00:00:00 2019-12-16 00:00:00 Orders Only Doctor Unassigned, [place] [facility] 1.2.840.114 350.1.13.10 4.2.7.2.686 [id number] [facility] 2019-12-03 10:31:24 2019-12-03 10:59:37 Office Visit Deni Jones [facility] Surgical Specialti dami [place]obb[place] 1.2.840.114 350.1.13.10 4.2.7.2.686 [id number] [facility] 2019-12-03 10:45:00 2019-12-03 10:45:00 Outpatient R DENI JONES [facility] [id number] [facility] 2019-12-03 00:00:00 2019-12-03 00:00:00 Orders Only Doctor Unassigned, [place] [facility] 1.2.840.114 350.1.13.10 4.2.7.2.686 [id number] [facility] 2019-11-11 14:19:00 2019-11-11 23:59:00 Hospital Encounter Deni Jones [facility] 1.2.840.114 350.1.13.10 4.2.7.2.686 [id number] [facility] 2019-11-11 15:55:12 2019-11-11 16:22:35 Office Visit Deni Jones [facility] Surgical Special dami [place] 1.2.840.114 350.1.13.10 4.2.7.2.686 [id number] [facility] 2019-11-11 15:55:12 2019-11-11 16:22:35 Office Visit Deni Jones [facility] Surgical Specialti dami [place] 1.2.840.114 350.1.13.10 4.2.7.2.686 [id number] 2019-11-11 16:15:00 2019-11-11 16:15:00 Outpatient R LUMA JONESIG [facility] [id number] [facility] 2019-11-11 00:00:00 2019-11-11 00:00:00 Telephone Deni Jones [facility] Health Surgical Specialti daim [place] 1.2.840.114 350.1.13.10 4.2.7.2.686 [id number] [facility] 2018-12-24 00:00:00 2018-12-24 00:00:00 Orders Only Doctor Unassigned, [place] [facility] 1.2.840.114 350.1.13.10 4.2.7.2.686 [id number] [facility] 2018-12-01 00:00:00 2018-12-01 00:00:00 Orders Only Doctor Unassigned, [place] [facility] 1.2.840.114 350.1.13.10 4.2.7.2.686 [id number] [facility] 2018-11-23 00:00:00 2018-11-23 00:00:00 Orders Only Doctor Unassigned, [place] [facility] 1.2.840.114 350.1.13.10 4.2.7.2.686 [id number] [facility] 2018-11-17 00:00:00 2018-11-17 00:00:00 Julienne Dutta [facility] Shilpi Marte [facility] 1.2.840.114 350.1.13.10 4.2.7.2.686 [id number] [facility] Results Test Description Test Time Test Comments Results Result Co mments [facility]57:59* Test Item Value Reference Range Interpretation Comme nts LIPASE (test code = 9162374541) 44 U/L 0-220 Lab Interpretation (test cod e = 18684-5) Normal [facility] [id number] 03:43:21* Test Item Value Reference Range Interpretation Comme nts WBC (test code = 6690-2) 10.24 See_Comment [Automated messa ge] The system which generated this result transmitted reference range: 4.30 - 11.10 10*3/?L. The reference range was not used to interpret this result as normal/abnormal. RBC (test code = 789-8) 4.70 See_Comment [Automated [employer]] The system which generated this result transmitted reference range: 3.93 - 5.25 10*6/?L. The reference range was not used to interpret this result as normal/abnormal. HGB (test code = 718-7) 15.0 g/dL 11.6-15.0 HCT (test code = 4544-3) 42.6 % 35.7-45.2 MCV (test code = 787-2) 90.6 fL 80.6-95.5 MCH (test code = 785-6) 31.9 pg 25.9-32.8 MCHC (test code = 786-4) 35.2 g/dL 31.6-35.1 H RDW-SD (test code = 27570-2) 38.9 fL 39.0-49.9 L RDW-CV (test code = 788-0) 11.7 % 12.0-15.5 L PLT (test code = 777-3) 342 See_Comment [Automated [employer]] The system which generated this result transmitted reference range: 166 - 358 10*3/?L. The reference range was not used to interpret this result as normal/abnormal. MPV (test code = 03464-8) 10.3 fL 9.5-12.9 NRBC/100 WBC (test code = 0909998796) 0.0 See_Comment [Automated [employer] ssage] The system which generated this result transmitted reference range: 0.0 - 10.0 /100 WBCs. The reference range was not used to interpret this result as normal/abnormal. NRBC x10^3 (test code = 2015534924) See_Comment [Automated [employer]] The system which generated this result transmitted reference range: 10*3/?L. The reference range was not used to interpret this result as normal/abnormal. GRAN MAT (NEUT) % (test code = 770-8) 80.5 % IMM GRAN % (test code = 0090539590) 0.30 % LYMPH % (test code = 736-9) 11.5 % MONO % (test code = 5905-5) 6.5 % EOS % (test code = 713-8) 1.0 % BASO % (test code = 706-2) 0.2 % GRAN MAT x10^3(ANC) (test code = 0826188268) 8.24 10*3/uL 1.88-7.09 H IMM GRAN x10^3 (test code = 8558797005) 0.03 10*3/uL 0.00-0.06 LYMPH x10^3 (test code = 731-0) 1.18 10*3/uL 1.32-3.29 L MONO x10^3 (test code = 742-7) 0.67 10*3/uL 0.33-0.92 EOS x10^3 (test code = 711-2) 0.10 10*3/uL 0.03-0.39 BASO x10^3 (test code = 704-7) 0.01-0.07 Lab Interpretation (test code = 69311-2) [facility]normal [facility] W [id number] 02:47:351. ?No bowel obstruction, appendicitis, free air, or focal loculatedintraperitoneal fluid collections.2. Recently ruptured or involuting cyst in the right ovary with a smallamount of fluid also seen in the right adnexal region. RL: [facility]: [id number] END OF REPORT ORDERING PHYSICIAN: CARMEN DRIVER CLINICAL INFORMATION: ? Abd pain, acute, generalized EPIGASTRIC PAIN COMPARISON: None Technique: ? CT of the abdomen and pelvis was performed after theadministration of IV contrast. No p.o. contrast was used. Multiplanarreformats were also obtained. This study was performed according to ALARAprinciple for radiation dose reduction. Findings: There is no evidence of obstructive uropathy. No suspicious renalparenchymal abnormalities are seen. Liver, gallbladder, spleen, adrenalglands, and pancreas show no evidence of gross abnormalities. There is nobowel obstruction. There is no appendicitis. There is a 1.8 cm involutingor recently ruptured cyst is seen in the right ovary. Small amount of fluidis also seen in the right adnexal region. No free air is seen. No focalloculated drainable fluid collections are seen. No distinct pathologicallyenlarged lymph nodes are seen in the abdomen or pelvis. The lung basesremain clear. There are n o suspicious focal osseous lesions. [facility], Radiant Results Inft User - 01/03/2020 9:48 PM CDTORDERING PHYSICIAN: CARMEN JOHNRIMACLINICAL INFORMATION: Abd pain, acute, generalized EPIGASTRIC PAIN COMPARISON: NoneTechnique: CT of the abdomen and pelvis was performed after theadministration of IV contrast. No p.o. contrast was used. Multiplanarreformats were also obtained. This study was performed according to ALARAprinciple for radiation dose reduction.Findings:There is no evidence of obstructive uropathy. No suspicious renalparenchymal abnormalities are seen. Liver, gallbladder, spleen, adrenalg lands, and pancreas show no evidence of gross abnormalities. There is nobowel obstruction. There isno appendicitis. There is a 1.8 cm involutingor recently ruptured cyst is seen in the right ovary. Small amount of fluidis also seen in the right adnexal region. No free air is seen. No focalloculated drainable fluid collections are seen. No distinct pathologicallyenlarged lymph nodes are seen in the abdomen or pelvis. The lung basesremain clear. There are no suspicious focal osseous lesions.IMPRESSION1. No bowel obstruction, appendicitis, free air, or focal loculatedintraperitoneal fluid collections.2. Recently ruptured or involuting cyst in the right ovary with a smallamount of fluid also seen in the right adnexal region.RL: [facility]: [id number] OF REPORT [facility] [id number] 01:46:00* Test Item Value Reference Range Interpretation Comme nts TROPONIN I (test code = 1190760919) 0.000 ng/mL See_Comment [Automated message] The system which generated this result transmitted reference range: <=0.034. The reference range was not used to interpret this result as normal/abnormal. CONNOR (test code = CONNOR) Equal or Less than 0.034 ng/ml---Normal ?Note: Cardiac troponin begins to rise 3-4 hours after the onset of ischemia. Repeat in 4-6 hours if the sample was drawn within 3-4 hours of the onset of the symptom and found normal. Between 0.035 and 0.120 ng/mL--- Borderline. Questionable myocardial injury or necrosis ? ?Note: Serial measurement may be necessary to confirm or exclude the diagnosis of myocardial injury or necrosis; Clinical correlation (symptoms, EKGs, imaging studies, and others) required; Repeat in 4-6 hours if clinically indicated. ? Equal or Higher than 0.121 ng/mL---Abnormal. Myocardial Injury or Necrosis Likely ? Biotin has been reported to cause a negative bias, interpret results relative to patient's use of biotin. ? Lab Interpretation (test code = 88860-7) [facility] 01:34:00* Test Item Value Reference Range Interpretation Comme nts NA (test code = 6938564975) 136 mmol/L 135-145 K (test code = 8452999927) 3.4 mmol/L 3.5-5 L CL (test code = 9996215525) 101 mmol/L 98-108 CO2 TOTAL (test code = 0577053553) 27 mmol/L 23-31 AGAP (test code = 6313390818) 2-16 BUN (test code = 3037290044) 12 mg/dL 7-23 GLUCOSE (test code = 2578795486) 86 mg/dL 70-110 CREATININE (test code = 0624720024) 0.52 mg/dL 0.5-1.04 TOTAL BILI (test code = 3412652018) 0.4 mg/dL 0.1-1.1 CALCIUM (test code = 4633957761) 8.6 mg/dL 8.6-10.6 T PROTEIN (test code = 6275669279) 7.0 g/dL 6.3-8.2 ALBUMIN (test code = 4065041834) 3.7 g/dL 3.5-5 ALK PHOS (test code = 1603582664) 67 U/L 34-122 ALTv (test code = 1742-6) 25 U/L 5-35 AST(SGOT) (test code = 9894742908) 26 U/L 13-40 eGFR Calculation (Non-) (test code = 5610986230) mL/min/1.73m2 eGFR Calculation () (test code = 2197382762) mL/min/1.73m2 CONNOR (test code = CONNOR) Association of Glomerular Filtration Rate (GFR) and Staging of Kidney Disease* + --+ --+ ------+| GFR (mL/min/1.73 m2) ?| With Kidney Damage ?| ?Without Kidney Damage+ --------+ --------+ +| ?>90 ?| ?Stage one ?| ? Normal ?+ ---+ ---+ -------+| ?60-89 ?| ?Stage two ?| ? Decreased GFR ? + --+ --+ ------+| ?30-59 ?| ?Stage three ?| ? Stage three ? + --+ --+ ------+| ?15-29 ?| ?Stage four ? | ? Stage four ?+ ---+ ---+ -------+| ?<15 (or dialysis) ? ?| ?Stage five ? | ? Stage five ?+ ---+ ---+ -------+ *Each stage assumes the associated GFR level has been in effect for at least three months. ?Stages 1 to 5, with or without kidney disease, indicate chronic kidney disease. Notes: Determination of stages one and two (with eGFR >59mL/min/1.73 m2) requires estimation of kidney damage for at least three months as defined by structural or functional abnormalities of the kidney, manifested by either:Pathological abnormalities or Markers of kidney damage (including abnormalities in the composition of the blood or urine or abnormalities in imaging tests). Lab Interpretation (test code = 16408-8) [facility] Test Item Value Reference Range Interpretation Comme nts LIPASE (test code = 9764182406) 57 U/L 0-220 Lab Interpretation (test cod e = 61538-1) Normal [facility] [id number] 01:23:00* Test Item Value Reference Range Interpretation Comme nts WBC (test code = 6690-2) See_Comment [Automated messa ge] The system which generated this result transmitted reference range: 4.30 - 11.10 10*3/?L. The reference range was not used to interpret this result as normal/abnormal. RBC (test code = 789-8) See_Comment [Automated messa ge] The system which generated this result transmitted reference range: 3.93 - 5.25 10*6/?L. The reference range was not used to interpret this result as normal/abnormal. HGB (test code = 718-7) 12.8 g/dL 11.6-15 HCT (test code = 4544-3) 37.4 % 35.7-45.2 MCV (test code = 787-2) 88.2 fL 80.6-95.5 MCH (test code = 785-6) 30.2 pg 25.9-32.8 MCHC (test code = 786-4) 34.2 g/dL 31.6-35.1 RDW-SD (test code = 85615-6) 39.6 fL 39-49.9 RDW-CV (test code = 788-0) 12.4 % 12-15.5 PLT (test code = 777-3) See_Comment [Automated messa ge] The system which generated this result transmitted reference range: 166 - 358 10*3/?L. The reference range was not used to interpret this result as normal/abnormal. MPV (test code = 12625-7) 10.4 fL 9.5-12.9 NRBC/100 WBC (test code = 8439039473) See_Comment [Automated me ssage] The system which generated this result transmitted reference range: 0.0 - 10.0 /100 WBCs. The reference range was not used to interpret this result as normal/abnormal. NRBC x10^3 (test code = 1885005965) <0.01 See_Comment [Automated me ssage] The system which generated this result transmitted reference range: 10*3/?L. The reference range was not used to interpret this result as normal/abnormal. GRAN MAT (NEUT) % (test code = 770-8) 52.3 % IMM GRAN % (test code = 6297622867) 0.20 % LYMPH % (test code = 736-9) 34.0 % MONO % (test code = 5905-5) 9.4 % EOS % (test code = 713-8) 3.4 % BASO % (test code = 706-2) 0.7 % GRAN MAT x10^3(ANC) (test code = 1488717802) 4.20 10*3/uL 1.88-7.09 IMM GRAN x10^3 (test code = 9230642310) <0.03 0-0.06 LYMPH x10^3 (test code = 731-0) 2.74 10*3/uL 1.32-3.29 MONO x10^3 (test code = 742-7) 0.76 10*3/uL 0.33-0.92 EOS x10^3 (test code = 711-2) 0.27 10*3/uL 0.03-0.39 BASO x10^3 (test code = 704-7) 0.06 10*3/uL 0.01-0.07 [facility]+ VW [id number] 19:46:50 HISTORY: ?Pain. FINDINGS: AP, lateral, oblique views of right ankle are obtained andcompared to 08/02/2018 study. Ankle mortise is intact. No talar dome lesionvisualized. No acute fracture or dislocation. No significant changes ofarthritis or aggressive bone lesions seen. No ankle joint effusion. No heelspur. CONCLUSIONS: Normal study. [facility], Radiant Results Inft User - 11/11/2019 2:47 PM CDTHISTORY: Pain.FINDINGS: AP, lateral, oblique views of right ankle are obtained andcompared to 08/02/2018 study. Ankle mortise is intact. No talar dome lesionvisualized. No acute fracture or dislocation. No si gnificant changes ofarthritis or aggressive bone lesions seen. No ankle joint effusion. No heelspur.CONCLUSIONS: Normal study.[facility]"
[2023-08-08 11:17] LABS: Specific Gravity 1.027 (1.005-1.030)
[2023-08-08] MEDS ORDERED: NA CHLORIDE 0.9% 1,000 ML ONE (11:17)
[2023-08-08] MEDS ORDERED: ONDANSETRON 4 MG/2 ML VIAL ONE (11:17)
[2023-08-08] MEDS ORDERED: MORPHINE 4 MG/ML SYR ONE (11:17)
[2023-08-08 11:21] LABS: Specific Gravity 1.028 (1.005-1.030); Urine Bacteria <20 /HPF (<20); Urine Bilirubin NEGATIVE (Negative); Urine Blood Negative (Negative); Urine Clarity Turbid (Clear); Urine Color Yellow (Yellow); Urine Culture Reflex Order NOT NEEDED; Urine Glucose NEGATIVE (Negative); Urine Ketones 2+ (Negative); Urine Microscopic Reflex YN ORDER UMIC; Urine Mucus 1+ /HPF (None Seen); Urine Nitrite NEGATIVE (Negative); Urine Protein TRACE (Negative); Urine Urobilinogen Normal (Normal); Urine WBC <5 /HPF (<5); Urine pH 7.5 (5.0-7.0)
[2023-08-08 11:24] LABS: Absolute Eosinophils 0.1 K/uL (0-0.5); Absolute Lymphocytes (CBC) 1.4 K/uL (0.7-4.9); Absolute Monocytes 0.6 K/uL (0.1-1.3); Absolute Neutrophil 8.9 K/uL (1.8-8.0); Basophils % 0.2 % (0-1.3); Eosinophils % 0.8 % (0-4.4); Hematocrit 42.4 % (36.0-45.0); Hemoglobin 14.3 g/dL (12.0-15.0); Lymphocytes % 12.8 % (15.3-44.8); MCH 30.9 pg (27.0-35.0); MCHC 33.8 g/dL (32.0-36.0); MCV 91.5 fL (80-100); MPV 8.3 fL (7.6-11.3); Monocytes % 5.1 % (3.3-12.3); Neutrophils % 81.1 % (41.7-73.7); Platelets 407 thou/uL (152-406); RBC Red Blood Cell Count 4.63 M/uL (3.86-4.86); Red Cell Distribution Width 13.6 % (12.1-15.2)
--- NOTE | 2023-08-08 11:33 | RAD REPORT ---
EXAM DESCRIPTION: CTAbdomen Pelvis W Contrast - 08/08/2023 11:24 am CLINICAL HISTORY: Abdominal pain. ABD PAIN COMPARISON: No comparisons TECHNIQUE: Biphasic CT imaging of the abdomen and pelvis was performed with 100 ml non-ionic IV cont rast. All CT scans are performed using dose optimization technique as appropriate and may include automated exposure control or mA/KV adjustment according to patient size. FINDINGS: The lung bases are clear. The liver, spleen, pancreas, adrenal glands and kidneys are within normal limits. No bowel obstruction, free air, free fluid or abscess. The appendix is normal. No evidence of signi ficant lymphadenopathy. 3.5 cm left ovarian follicle. No suspicious bony findings. IMPRESSION: No acute intra-abdominal or pelvic finding.
[2023-08-08 11:44] LABS: ALT/SGPT 40 U/L (13-56); AST/SGOT 24 U/L (15-37); Albumin 3.3 g/dL (3.4-5.0); Albumin/Globulin Ratio 0.8 (1.1-1.8); Alkaline Phosphatase 57 U/L (45-117); BUN Blood Urea Nitrogen 8 mg/dL (7-18); Bicarbonate 29 mEq/L (21-32); Bilirubin Total 0.5 mg/dL (0.2-1.0); Globulin 3.9 g/dL (2.3-3.5); Glomerular Filtration Rate 117 ml/min (=/>90); Glucose Level 104 mg/dL (74-106); Lipase 15 U/L (13-75); Protein, Total 7.2 g/dL (6.4-8.2); Sodium Level 135 mEq/L (136-145)
[2023-08-08 11:45] LABS: Troponin High Sensitivity < 3.0 pg/mL (<58.9)
--- NOTE | 2023-08-08 11:51 | ER ---
Nurse's Notes [facility] Name: Nehal Snow Age: 47 yrs Sex: Female : 1975 Arrival Date: 08/08/2023 Time: 10:33 Bed 16 Private MD: Diagnosis: Vomiting, foodborne illness Presentation: 08/07 10:44 Chief complaint: Patient states: vomiting since 830 last night, can't tolerate fluids, iw pain in med abdomen , 6/10, report soft stool. Coronavirus screen: Client presents with at least one sign or symptom that may indicate coronavirus-19. Ebola Screen: Patient negative for fever greater than or equal to 101.5 degrees Fahrenheit, and additional compatible Ebola Virus Disease symptoms Patient denies exposure to infectious person. Patient denies travel to an Ebola-affected area in the 21 days before illness onset. No symptoms or risks identified at this time. Initial Sepsis Screen: Does the patient meet any 2 criteria? No. Patient's initial sepsis screen is negative. Does the patient have a suspected source of infection? No. Patient's initial sepsis screen is negative. Risk Assessment: Do you want to hurt yourself or someone else? Patient reports no desire to harm self or others. Onset of symptoms was August 08, 2023. 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 - Infectious Disease History:: Denies. - Social history:: Smoking status: unknown. Screenin:[facility] ED Fall Risk Assessment (Adult) History of falling in the last 3 months, nj1 including since admission No falls in past 3 months (0 pts) Confusion or Disorientation No (0 pts) Intoxicated or Sedated No (0 pts) Impaired Gait No (0 pts) Mobility Assist Device Used No (0 pt) Altered Elimination No (0 pt) Score/Fall Risk Level 0 - 2 = Low Risk Oriented to surroundings, Maintained a safe environment, Hourly rounding (assess needs \T\ fall precautionary measures) done. Abuse screen: Denies threats or abuse. Denies injuries from another. Nutritional screening: No deficits noted. Tuberculosis screening: No symptoms or risk factors identified. Assessment: 11:00 General: Appears in no apparent distress. comfortable, Behavior is calm, cooperative, nj1 appropriate for age. 11:00 Pain: Complains of pain in abdomen Pain currently is 6 out of 10 on a pain scale. nj1 Cardiovascular: Patient's skin is warm and dry. Respiratory: Airway is patent Respiratory effort is even, unlabored. 11:00 GI: Reports upper abdominal pain, intolerance of fluids, intolerance of food, nausea. nj1 11:45 Reassessment: Patient appears in no apparent distress at this time. Patient and/or nj1 family updated on plan of care and expected duration. Pain level reassessed. Patient is alert, oriented x 3, equal unlabored respirations, skin warm/dry/pink. 12:00 Reassessment: IVF infusing. nj1 12:22 General: Discharge on hold to finish IV fluids.. me1 12:30 General: Appears comfortable, well groomed, well developed, well nourished, Behavior is me1 calm, cooperative, appropriate for age. Pain: Denies pain. Neuro: Level of Consciousness is awake, alert, obeys commands, Oriented to person, place, time, situation, Appropriate for age. Cardiovascular: Patient's skin is warm and dry. Respiratory: Airway is patent Respiratory effort is even, unlabored, Respiratory pattern is regular, symmetrical. GI: Reports nausea. GI: Abdomen is non-distended. : No signs and/or symptoms were reported regarding the genitourinary system. EENT: No signs and/or symptoms were reported regarding the EENT system. Derm: Skin is intact, is healthy with good turgor, Skin is pink, warm \T\ dry. Musculoskeletal: No signs and/or symptoms reported regarding the musculoskeletal system. Vital Signs: 10:44 BP 137 / 98; Pulse 76; Resp 16; Pulse Ox 98% on R/A; Weight 81.65 kg; Height 5 ft. 4 iw in. ; Pain 6/10; 11:30 BP 127 / 61; Pulse 78; Resp 16; Pain 5/10; nj1 10:44 Body Mass Index 30.90 (81.65 kg, 162.56 cm) iw 10:44 Pain Scale: Adult iw 11:30 Pain Scale: Adult nj1 ED Course: 10:35 Patient arrived in ED. rg4 10:35 Merrick Murphy MD is Attending Physician. sp3 10:45 Triage completed. iw 10:47 Arm band placed on. iw 10:54 Radha Wilkinson, RN is Primary Nurse. nj1 11:00 Patient has correct armband on for positive identification. Bed in low position. Call nj1 light in reach. Adult w/ patient. Provided Education on: call light, fall precautions. 11:00 Client placed on continuous cardiac and pulse oximetry monitoring. NIBP monitoring nj1 applied. 11:21 CBC with Diff Sent. jr12 11:21 CMP Sent. jr12 11:21 Lipase Sent. jr12 11:21 Urinalysis w/ reflexes Sent. jr12 11:21 Inserted saline lock: 20 gauge in right antecubital area, using aseptic technique. jr12 Blood collected. 11:26 CT Abd/Pelvis - IV Contrast Only In Process Unspecified. EDMS 12:05 Report given to Amina CISNEROS. nj1 12:22 Amina Rausch, RN is Primary Nurse. me1 12:30 No provider procedures requiring assistance completed. Patient did not have IV access me1 during this emergency room visit. intact, bleeding controlled, No redness/swelling at site. Pressure dressing applied. Administered Medications: 11:33 Drug: NS 0.9% IV 1000 ml IV at 1 bolus Per protocol; 1000 mL bolus Route: IV; Rate: 1 nj1 bolus; Site: right antecubital; 12:31 Follow up: Response: No adverse reaction; IV Status: Completed infusion; IV Intake: me1 1000ml 11:33 Drug: Ondansetron IVP 4 mg IVP once; over 2 minutes Route: IVP; Site: right antecubital;nj1 12:32 Follow up: Response: No adverse reaction; Nausea is decreased me1 11:35 Drug: morphine IVP or IV 4 mg IVP once over 4 mins Route: IVP; Infused Over: 4 mins; nj1 Site: right antecubital; 12:32 Follow up: Response: No adverse reaction; Pain is decreased me1 Medication: 12:30 VIS not applicable for this client. me1 Intake: 12:31 IV: 1000ml; Total: 1000ml. me1 Outcome: 11:51 Discharge ordered by . sp3 12:32 Discharged to home ambulatory, with family, me1 12:32 Condition: stable 12:32 Discharge instructions given to patient, family, Instructed on discharge instructions, follow up and referral plans. medication usage, Demonstrated understanding of instructions, follow-up care, medications, Prescriptions given X 1, 12:33 Patient left the ED. me1 Signatures: Dispatcher [employer] EDLynda Olvera, RN Lovely Alvarado 4 Merrick Murphy MD MD sp3 Radha Wilkinson RN RN nj1 Amina Rausch RN RN me1 Silva [place] 12 Corrections: (The following items were deleted from the chart) 11:45 11:30 BP 127 / 61; Pulse 78bpm; Resp 16bpm; nj1 nj1
--- NOTE | 2023-08-08 11:51 | EDPHYS ---
Physician Documentation [facility] Name: Nehal Snow Age: 47 yrs Sex: Female : 1975 Arrival Date: 08/08/2023 Time: 10:33 Bed 16 Private MD: ED Physician Merrick Murphy HPI: 08/07 11:18 This 47 yrs old Unknown Female presents to ER via Ambulatory with complaints of sp3 Vomiting and abdominal pain. 11:18 47-year-old female with history of atrial fibrillation now here for epigastric pain sp3 radiating to the right upper quadrant with vomiting off and on since 8:30 PM yesterday. Patient states that this all started immediately after eating dinner which was a home-cooked meal. She denies any chest pain, shortness of breath, back pain, symptoms, lower abdominal pain, fever, blood or mucus in her emesis, diarrhea, or any other signs or symptoms on ROS at this time. Patient has had a hysterectomy but no other significant surgeries.. 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 - Infectious Disease History:: Denies. - Social history:: Smoking status: unknown. ROS: 11:19 Constitutional: Negative for fever, chills, and weight loss, Eyes: Negative for injury, sp3 pain, redness, and discharge, ENT: Negative for injury, pain, and discharge, Neck: Negative for injury, pain, and swelling, Cardiovascular: Negative for chest pain, palpitations, and edema, Respiratory: Negative for shortness of breath, cough, wheezing, and pleuritic chest pain, Back: Negative for injury and pain, MS/Extremity: Negative for injury and deformity, Skin: Negative for injury, rash, and discoloration, Neuro: Negative for headache, weakness, numbness, tingling, and seizure, Psych: Negative for depression, anxiety, suicide ideation, homicidal ideation, and hallucinations, Allergy/Immunology: Negative for hives, rash, and allergies, Endocrine: Negative for neck swelling, polydipsia, polyuria, polyphagia, and marked weight changes, Hematologic/Lymphatic: Negative for swollen nodes, abnormal bleeding, and unusual bruising, 11:19 All other systems are negative, Exam: 11:19 Constitutional: This is a well developed, well nourished patient who is awake, alert, sp3 and in no acute distress. Head/Face: Normocephalic, atraumatic. Eyes: Pupils equal round and reactive to light, extra-ocular motions intact. Lids and lashes normal. Conjunctiva and sclera are non-icteric and not injected. Cornea within normal limits. Periorbital areas with no swelling, redness, or edema. Neck: Trachea midline, no thyromegaly or masses palpated, and no cervical lymphadenopathy. Supple, full range of motion without nuchal rigidity, or vertebral point tenderness. No Meningismus. Chest/axilla: Normal chest wall appearance and motion. Nontender with no deformity. No lesions are appreciated. Cardiovascular: Regular rate and rhythm with a normal S1 and S2. No gallops, murmurs, or rubs. Normal PMI, no JVD. No pulse deficits. Respiratory: Lungs have equal breath sounds bilaterally, clear to auscultation and percussion. No rales, rhonchi or wheezes noted. No increased work of breathing, no retractions or nasal flaring. Back: No spinal tenderness. No costovertebral tenderness. Full range of motion. Skin: Warm, dry with normal turgor. Normal color with no rashes, no lesions, and no evidence of cellulitis. MS/ Extremity: Pulses equal, no cyanosis. Neurovascular intact. Full, normal range of motion. Neuro: Awake and alert, GCS 15, oriented to person, place, time, and situation. Cranial nerves II-XII grossly intact. Motor strength 5/5 in all extremities. Sensory grossly intact. Cerebellar exam normal. Normal gait. Psych: Awake, alert, with orientation to person, place and time. Behavior, mood, and affect are within normal limits. 11:19 Abdomen/GI: Right upper quadrant abdominal pain to palpation without peritoneal signs, rebound or guarding. No active emesis however patient is still nauseated., 11:45 ECG was reviewed by the Attending Physician. EKG demonstrates normal sinus rhythm at 66 sp3 bpm with normal intervals, normal QRS, normal axis, normal ST's ST segments without evidence of acute ischemia. Vital Signs: 10:44 BP 137 / 98; Pulse 76; Resp 16; Pulse Ox 98% on R/A; Weight 81.65 kg; Height 5 ft. 4 iw in. ; Pain 6/10; 11:30 BP 127 / 61; Pulse 78; Resp 16; Pain 5/10; nj1 10:44 Body Mass Index 30.90 (81.65 kg, 162.56 cm) iw 10:44 Pain Scale: Adult iw 11:30 Pain Scale: Adult nj1 MDM: 10:51 Patient medically screened. sp3 11:20 Data reviewed: vital signs, nurses notes. sp3 11:23 ED course: 47-year-old female with vomiting and right upper quadrant abdominal pain. sp3 Differential diagnosis includes biliary pathology, cholecystitis, cholelithiasis, gastritis, pancreatitis, colitis, musculoskeletal, and to a lesser degree ACS spectrum. 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 Workup will include laboratory values, CT scan of the abdomen pelvis, urine analysis and treatment with pain and nausea control along with IV fluids. Disposition pending workup and patient course.. 11:50 ED course: Full workup negative including CT abdomen and pelvis. No significant sp3 laboratory abnormalities. This is likely foodborne illness and we will discharge with ondansetron and supportive care.. 08/07 11:00 Order name: CBC with Diff; Complete Time: 11:3 08/07 11:00 Order name: CMP; Complete Time: 11:50 sp3 08/07 11:00 Order name: Lipase; Complete Time: 11:3 08/07 11:00 Order name: Test, Urine; Complete Time: : sp3 08/07 11:00 Order name: Urinalysis w/ reflexes; Complete Time: 11: sp3 08/07 11:00 Order name: Troponin High Sensitivity; Complete Time: 11:50 3 08/07 11:00 Order name: CT Abd/Pelvis - IV Contrast Only; Complete Time: 3 08/07 11:00 Order name: IV Saline Lock; Complete Time: 11: sp3 08/07 11:00 Order name: Labs collected and sent; Complete Time: sp3 08/07 11:00 Order name: EKG - Nurse/Tech; Complete Time: 11:45 sp3 Administered Medications: 11:33 Drug: NS 0.9% IV 1000 ml IV at 1 bolus Per protocol; 1000 mL bolus Route: IV; Rate: 1 nj1 bolus; Site: right antecubital; 12:31 Follow up: Response: No adverse reaction; IV Status: Completed infusion; IV Intake: me1 1000ml 11:33 Drug: Ondansetron IVP 4 mg IVP once; over 2 minutes Route: IVP; Site: right antecubital;nj1 12:32 Follow up: Response: No adverse reaction; Nausea is decreased me1 11:35 Drug: morphine IVP or IV 4 mg IVP once over 4 mins Route: IVP; Infused Over: 4 mins; nj1 Site: right antecubital; 12:32 Follow up: Response: No adverse reaction; Pain is decreased me1 Disposition Summary: 08/08/23 11:51 Discharge Ordered Notes: Location: Home sp3 Condition: Stable sp3 Diagnosis - Vomiting, foodborne illness sp3 Followup: sp3 - With: Private Physician - When: Upon discharge from the Emergency Department - Reason: Continuance of care Discharge Instructions: - Discharge Summary Sheet sp3 - Vomiting, Adult sp3 Forms: - Medication Reconciliation Form sp3 - Antibiotic Education sp3 - Prescription Opioid Use sp3 - Patient Portal Instructions sp3 - Leadership Thank You Letter sp3 Prescriptions: - ondansetron 8 mg Oral Tablet,disintegrating - take 1 tablet ORAL route every 12 hours; 20 tablet; Refills: 0, Product sp3 Selection Permitted Signatures: Dispatcher [employer] Lynda Dale RN RN iw Patel, Setul, MD MD sp3 Radha Wilkinson RN RN nj1 Amina Rausch RN me1 Corrections: (The following items were deleted from the chart) 11: 11:01 CBC+H.LAB.BRZ ordered. EDMS EDMS 11: 11:01 COMPREHENSIVE METABOLIC PANEL+C.LAB.BRZ ordered. EDMS EDMS 11: 11:01 LIPASE+C.LAB.BRZ ordered. EDMS EDMS 11: Test, Urine+UC.LAB.BRZ ordered. EDMS EDMS : 11: Urinalysis+U.LAB.BRZ ordered. EDMS EDMS : 11: Troponin High Sensitivity+C.LAB.BRZ ordered. EDMS EDMS
[2023-08-08 12:47] VITALS: BP 127/61; O2SAT 98
--- NOTE | 2023-08-12 13:11 | EKG ---
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
== END 2023-08-08 12:33 | disposition home or self-care (01) ==
LOC: ER 10:33
DX: A05.9 Bacterial foodborne intoxication, unspecified (principal); I48.91 Unspecified atrial fibrillation; Z91.040 Latex allergy status; Z91.048 Other nonmedicinal substance allergy status
CPT/HCPCS: 93005; 85025; 81001; 36415; 81025; 84484; 83690; 80053; 74177; Q9967; J2405; J7030

== ENCOUNTER 2023-11-24 14:01 | Emergency (ER) | payer OTHER ==
--- OUTSIDE RECORDS SUMMARY | 2023-11-24 14:03 | XMS REPORT | Continuity of Care Document ---
Author Name Unknown Address [address] [facility]. [address] [place] [address] [facility] Address [address] [facility] [address] [place] [address] Care Team Providers Care Carbide Die Maker Name Role Phone ERIK BRUNER Primary Care Physician Unavailab flex [email or web address] Attending Clinician UnavailVianca Andrade TONGUE BINDER-COSMETIC MANAGER Attending Clinician Adelita JOANN Wood Attending Clinician Unavailable Joann Thompson DO Attending Clinician [phone] John Mckoy Attending Clinician Unavailable Willie Andrea DO Attending Clinician [phone] Aleida Morales Attending Clinician [phone] RADIOLOGY Attending Clinician Unavailable ALEIDA POLLARD Attending Clinician Unavailable Deni Jones MD Attending Clinician [phone] Lab, Adc Fam Pob I Attending Clinician Unavailab Jeannine Ricci Attending Clinician [phone] JEANNINE BILLINGSLEY Attending Clinician Unavailable Neisha CALL, Carmen Banks Attending Clinician [phone] DENI JONES Attending Clinician Unavailabl e Doctor Unassigned, [place] Attending Clinician U navailable Gramm VALERIA, Julienne Nassar Attending Clinician [phone] [email or web address] Admitting Clinician Unavaila Vianca Mccauley APRN-COSMETIC MANAGER Admitting Clinician Adelita John Valles Admitting Clinician Unavailable Payers Payer Name Policy Type Policy Number Effective Date Expirati on Date Source [facility] [id number] 2017 00:00:00 [facility] [id number] 2017 00:00:00 Problems Condition Name Condition Details Condition Category Status Onset Date Resolution Date Last Treatment Date Treating Clinician Comments Source Atrophic vaginitis Atrophic Vaginitis Problem Active 2022-04 00:00: 00 [facility] Essential hypertensi on Essential Hypertensi on Problem Active 2022-04 00:00: 00 [facility] Female stress incontinen ce Female Stress Incontinen ce Problem Active 2022-04 00:00: 00 [facility] Hypothyroi dism Hypothyroi dism Problem Active 2022-04 00:00: 00 [facility] Anxiety Anxiety Problem Active 2022-04 00:00: 00 [facility] Depressive disorder Depressive Disorder Problem Active 2022-04 00:00: 00 [facility] Hypertensi ve disorder Hypertensi ve Disorder Problem Active 2022-04 00:00: 00 [facility] Atrial fibrillati on Atrial Fibrillati on Problem Active 2022-04 00:00: 00 [facility] Constipati on Constipati on Problem Active 2022-04 00:00: 00 [facility] Endometrio sis of uterus Endometrio sis of Uterus Problem Active 2022-04 00:00: 00 [facility] Heartburn Heartburn Problem Active 2022-04 00:00: 00 [facility] Reduced libido Reduced Libido Problem Active 2022-04 00:00: 00 [facility] Overactive urinary bladder Overactive Urinary Bladder Problem Active 2022-04 00:00: 00 [facility] Mass of left breast Mass of Left Breast Problem Active 2022-04 00:00: 00 [facility] Urinary incontinen ce Urinary Incontinen ce Problem Active 11-19 00:00: 00 [facility] Right knee pain Right knee pain Disease Active 04-18 00:00: 00 [facility] Right knee pain Right knee pain Disease Active 04-18 00:00: 00 [facility] Allergies, Adverse Reactions, Alerts Allergy Name Allergy Type Status Severity Reaction(s) Onset Date Inactive Date Treating Clinician Comments Source Avocado Propensi ty to adverse reaction s Active Swelling 2017-04 00:00: 00 [facility] AVOCADO DRUG INGREDI Active High Anaphylaxis 2017-04 00:00: 00 [facility] LATEX DRUG INGREDI Active Rash 2014-04 0 00:00: 00 [facility] Latex Propensi ty to adverse reaction s Active Rash 2014-04 0 00:00: 00 [facility] Detrol Allergy to substanc e Active Itching [facility] Latex Allergy to substanc e Active [facility] Social History Social Habit Start Date Stop Date Quantity Comments Source History of tobacco use Current smoker [facility] to SARS-[facility]2 (event) Not sure [facility] Alcohol intake 2020-03-16 00:00:00 2020-03-16 00:00:00 0 /d [facility] History of Social function 2019-12-03 00:00:00 2019-12-03 00:00:00 [facility] Tobacco use and exposure 2016-05-16 00:00:00 2016-05-16 00:00:00 Smokeless tobacco non-user [facility] Alcohol Comment 2016-04-18 00:00:00 2016-04-18 00:00:00 socailly [facility] Sex Assigned At 1975 00:00:00 1975 00:00:00 [facility] Smoking Status Start Date Stop Date Source Current Every Day Smoker [facility] Ex-smoker 2016-05-16 00:00:00 2016-05-16 00:00:00 U [facility] Medications Ordered Medication Name Filled Medication Name Start Date Stop Date Current Medication? Ordering Clinician Indication Dosage Frequency Signature (SIG) Comments Components Source metoclopram sarah HCl (REGLAN) tablet 10 mg 01-09 12:30: 00 Yes 10mg 10 mg, Oral, AC, First dose on Sat01/09/23 at 0730, Until Discontinu ed, Routine [facility] ondansetron (ZOFRAN-ODT ) disintegrat ing tablet 8 mg 01-09 03:30: 00 01-09 02:40 :00 No 8mg 8 mg, Oral, ONCE, 1 dose, On Sat01/08/23 at 2230, Routine [facility] metoclopram sarah HCl 10 mg tablet 01-08 00:00: 00 Yes [id number] 10mg Take 1 tablet by mouth every 6 (six) hours. [facility] meloxicam (MOBIC) 15 mg tablet 2019-04 00:00: 00 Yes 15mg Take 1 tablet by mouth daily. [facility] diphenhydrA MINE (BENADRYL) injection 25 mg 01-03 03:30: 00 01-03 02:59 :00 No 25mg 25 mg, Slow IV Push, ONCE, 1 dose, 01/03/20 at 2230, STAT [facility] metoclopram sarah HCl (REGLAN) injection 10 mg 01-03 03:30: 00 01-03 02:59 :00 No 10mg 10 mg, Slow IV Push, ONCE, 1 dose, 01/03/20 at 2230, VALDEZ [facility] KCL (KLOR-CON M20) tablet 40 mEq 01-03 02:45: 00 01-03 02:11 :00 No 40meq 40 mEq, Oral, ONCE, 1 dose, 01/03/20 at 2145, Routine [facility] ketorolac (TORADOL) injection 30 mg 01-03 02:15: 01-03 01:18 :00 No 30mg 30 mg, Slow IV Push, ONCE, 1 dose, 01/03/20 at 2114, Routine
crew team member approving Restricted medication : CARMEN DRIVER [facility] ondansetron (ZOFRAN (PF)) injection 4 mg 01-03 02:15: 01-03 01:18 :00 No 4mg 4 mg, Slow IV Push, ONCE, 1 dose, 01/03/20 at 2114, VALDEZ [facility] pantoprazol e (PROTONIX) 40 mg in NaCl 0.9% (NS) 100 mL MINI-BAG 01-03 02:15: 00 01-03 01:33 :00 No 40mg 40 mg, IV Piggyback, ONCE, 1 dose, 01/03/20 at 2114, 100 mL [facility] iohexol (OMNIPAQUE 350 BULK-150 mL) injection 120 mL 01-03 02:00: 00 01-03 02:00 :00 No 120mL 120 mL, Intravenou s, ONCE, 1 dose, 01/03/20 at 2114, Routine [facility] traMADoL 100 mg Tab 01-02 00:00: 00 Yes [id number] 1{tbl} Take 1 tablet by mouth every 6 (six) hours as needed for Pain (scale 7-10). [facility] dicyclomine 20 mg tablet 01-02 00:00: 00 Yes [id number] 20mg Take 1 tablet by mouth every 6 (six) hours as needed for Abdominal pain. [facility] ondansetron (ZOFRAN) 4 mg tablet 01-02 00:00: 00 Yes [id number] 4mg Take 1 tablet by mouth every 8 (eight) hours as needed for Nausea and Vomiting (N/V). [facility] methylPREDN ISolone 4 mg tablets 2-16 00:00: 00 Yes [id number] Take by mouth SEE-INSTRU CTIONS. follow package directions [facility] dicyclomine (BENTYL) 20 mg tablet 16 00:00: 00 Yes [id number] 20mg Take 1 tablet by mouth 4 (four) times daily. [facility] metoprolol (LOPRESSOR) 10 mg/mL oral suspension 05-19 21:58: 09 Yes Take by mouth 2 (two) times daily. [facility] metoprolol (LOPRESSOR) 10 mg/mL oral suspension 05-19 15:58: 09 Yes Take by mouth 2 (two) times daily. [facility] LYRICA 50 mg capsule 2017-04 0 00:00: 00 Yes TAKE ONE CAPSULE BY MOUTH TWICE A DAY [facility] Thyroid 60 mg tablet Take 1 tablet every day by oral route. [facility] Thyroid 60 mg tablet Take 1 tablet every day by oral route. No 1 Q1D [facility] Thyroid 60 mg tablet Take 1 tablet every day by oral route. [facility] Flagyl 500 mg tablet Take 1 tablet every 12 hours by oral route for 7 days. Flagyl 500 mg tablet Take 1 tablet every 12 hours by oral route for 7 days. No 1 Q12H Flagyl 500 mg tablet Take 1 tablet every 12 hours by oral route for 7 days. [facility] hydrochloro thiazide 12.5 mg tablet Take 1 tablet every day by oral route. hydrochloro thiazide 12.5 mg tablet Take 1 tablet every day by oral route. No 1 Q1D hydrochlor othiazide 12.5 mg tablet Take 1 tablet every day by oral route. [facility] methylpheni date ER 18 mg tablet,exte nded release 24 hr methylpheni date ER 18 mg tablet,exte nded release 24 hr No methylphen idate ER 18 mg tablet,ext ended release 24 hr [facility] metoprolol succinate ER 100 mg tablet,exte nded release 24 hr metoprolol succinate ER 100 mg tablet,exte nded release 24 hr No metoprolol succinate ER 100 mg tablet,ext ended release 24 hr [facility] montelukast 10 mg tablet montelukast 10 mg tablet No montelukas t 10 mg tablet [facility] omeprazole 40 mg capsule,del ayed release BID omeprazole 40 mg capsule,del ayed release BID No omeprazole 40 mg capsule,de layed release BID [facility] oxybutynin chloride ER 10 mg tablet,exte nded release 24 hr TAKE 1 TABLET BY MOUTH EVERY DAY oxybutynin chloride ER 10 mg tablet,exte nded release 24 hr TAKE 1 TABLET BY MOUTH EVERY DAY No oxybutynin chloride ER 10 mg tablet,ext ended release 24 hr TAKE 1 TABLET BY MOUTH EVERY DAY [facility] Probiotic Probiotic No Probiotic [facility] Vital Signs Vital Name Observation Time Observation Value Comments S ource BP Systolic 2023-11-05 00:00:00 135 mm[Hg] [facility] Body Weight 2023-11-05 00:00:00 173 [lb_av] [facility] Height 2023-11-05 00:00:00 64 [in_i] [facility] BMI (Body Mass Index) 2023-11-05 00:00:00 29.7 kg/m2 [facility] BP Diastolic 2023-11-05 00:00:00 80 mm[Hg] [facility] Systolic blood pressure 2023-01-09 04:36:00 129 mm[Hg] [facility] Diastolic blood pressure 2023-01-09 04:36:00 77 mm[Hg] [facility] Heart rate 2023-01-09 04:36:00 77 /min [facility] Body temperature 2023-01-09 04:36:00 37.06 [facility] Respiratory rate 2023-01-09 04:36:00 16 /min [facility] Oxygen saturation in Arterial blood by Pulse oximetry 2023-01-09 04:36:00 100 /min [facility] Body height 2023-01-09 01:42:00 162.6 cm [facility] Body weight 2023-01-09 01:42:00 74.844 kg [facility] BMI 2023-01-09 01:42:00 28.32 kg/m2 [facility] Systolic blood pressure 2020-03-16 19:23:00 126 mm[Hg] [facility] Diastolic blood pressure 2020-03-16 19:23:00 83 mm[Hg] [facility] Heart rate 2020-03-16 19:23:00 94 /min [facility] Body height 2020-03-16 19:23:00 165.1 cm [facility] Body weight 2020-03-16 19:23:00 81.647 kg [facility] BMI 2020-03-16 19:23:00 29.95 kg/m2 [facility] Systolic blood pressure 2020-01-04 02:59:05 116 mm[Hg] [facility] Diastolic blood pressure 2020-01-04 02:59:05 81 mm[Hg] [facility] Heart rate 2020-01-04 02:59:05 76 /min [facility] Respiratory rate 2020-01-04 02:59:05 18 /min [facility] Oxygen saturation in Arterial blood by Pulse oximetry 2020-01-04 02:59:05 99 /min [facility] Body temperature 2020-01-04 00:22:00 36.89 [facility] Body height 2020-01-04 00:22:00 165.1 cm [facility] Body weight 2020-01-04 00:22:00 83.915 kg [facility] BMI 2020-01-04 00:22:00 30.79 kg/m2 [facility] Systolic blood pressure 2019-12-03 15:40:00 124 mm[Hg] [facility] Diastolic blood pressure 2019-12-03 15:40:00 78 mm[Hg] [facility] Heart rate 2019-12-03 15:40:00 89 /min [facility] Body height 2019-12-03 15:35:00 165.1 cm [facility] Body weight 2019-12-03 15:35:00 83.915 kg [facility] BMI 2019-12-03 15:35:00 30.79 kg/m2 [facility] Systolic blood pressure 2019-11-11 20:57:00 132 mm[Hg] [facility] Diastolic blood pressure 2019-11-11 20:57:00 89 mm[Hg] [facility] Respiratory rate 2019-11-11 20:57:00 18 /min [facility] Body height 2019-11-11 20:57:00 165.1 cm [facility] Body weight 2019-11-11 20:57:00 83.915 kg [facility] BMI 2019-11-11 20:57:00 30.79 kg/m2 [facility] Systolic blood pressure 2019-11-11 20:57:00 132 mm[Hg] [facility] Diastolic blood pressure 2019-11-11 20:57:00 89 mm[Hg] [facility] Respiratory rate 2019-11-11 20:57:00 18 /min [facility] Body height 2019-11-11 20:57:00 165.1 cm [facility] Body weight 2019-11-11 20:57:00 83.915 kg [facility] BMI 2019-11-11 20:57:00 30.79 kg/m2 [facility] Procedures Procedure Date / Time Performed Performing Clinician Source LIPASE 2023-01-09 02:57:00 Joann Thompson [facility] COMP. METABOLIC PANEL ([id number]) 2023-01-09 02:57:00 Joann Thompson [facility] CBC WITH DIFF 2023-01-09 02:57:00 oJann Thompson [facility] NOTICE OF PRIVACY PRACTICES 2023-01-09 01:38:06 Doctor Unassigned, [place] [facility] CONSENT/REFUSAL FOR DIAGNOSIS AND TREATMENT 2023-01-09 01:37:49 Doctor Unassigned, [place] [facility] Augmentation Mammoplasty 2021-10-06 00:00:[address] [facility] [address] ABDOMEN PELVIS W CONTRAST 2020-01-04 02:01:38 Carmen Driver [facility] LIPASE 2020-01-04 01:15:00 Carmen Driver [facility] TROPONIN I 2020-01-04 01:15:00 Carmen Driver [facility] COMP. METABOLIC PANEL ([id number]) 2020-01-04 01:15:00 Carmen Driver [facility] CBC WITH DIFF 2020-01-04 01:15:00 Carmen Driver [facility] EKG-12 LEAD 2020-01-04 01:13:30 Carmen Driver [facility] REFERRAL- REQUEST/RESPONSE 2019-12-16 05:01:00 Doctor Unassigned, [place] [facility] REFERRAL- REQUEST/RESPONSE 2019-12-03 05:01:00 Doctor Unassigned, [place] [facility] XR ANKLE 3+ VW RIGHT 2019-11-11 19:45:16 Luma Jones [facility] Incontinence Procedure: Suburethral Sling 2019-01-02 00:00:00 [facility] REFERRAL- REQUEST/RESPONSE 2018-12-24 05:01:00 Doctor Unassigned, [place] [facility] REFERRAL- REQUEST/RESPONSE 2018-12-01 05:01:00 Doctor Unassigned, [place] [facility] EXTERNAL PROVIDER RECORDS 2018-11-23 05:01:00 Doctor Unassigned, [place] [facility] Hysterectomy (Ovaries Remain) 2015-04-15 00:00:00 [facility] Endometr Ablate Thermal 2010-04-15 00:00:00 [facility] Destructive Procedure 2010-04-15 00:00:00 [facility] Encounters Start Date/Time End Date/Time Encounter Type Admission Type Attending Clinicians Care Facility Care Department Encounter ID Source 2021-02-10 18:29:16 Emergency [facility] [id number] [facility] 2023-11-05 00:00:00 2023-11-05 00:00:00 CHASTITY Lew: [facility] Alma [address], [place] [address] , Ph. Formerly [facility] - GC_GCBZW_La [facility]* [id number] [facility] 2023-03-28 00:00:00 2023-03-28 00:00:00 Outpatient GC_GCBZW_Ka diyala_S [facility] [id number] [facility] 2023-03-16 00:00:00 2023-03-16 00:00:00 Outpatient GC_GCBZW_Ka diyala_S [facility] [id number] [facility] 2023-03-06 12:00:00 2023-03-06 12:00:00 Outpatient Vianca Duncan [facility] [id number] [facility] 2023-02-28 00:00:00 2023-02-28 00:00:00 Outpatient GC_GCBZW_Ka diyala_S PRIV PRIV [id number] [facility] 2023-02-05 00:00:00 2023-02-05 00:00:00 Outpatient PRIV PRIV [id number] [facility] 2023-01-08 20:48:00 2023-01-08 23:46:00 Emergency X JOANN THOMPSON [facility] ERT [id number] [facility] 2023-01-08 20:48:00 2023-01-08 23:46:00 Emergency Joann Thompson [facility] 1..840.114 350.1.13.10 4.2.7.2.686 [id number] [facility] 2021-05-17 12:00:00 2021-05-17 12:00:00 Outpatient John Rodriguez [facility] [id number] [facility] 2020-06-30 00:00:00 2020-06-30 00:00:00 Patient Outreach Willie Andrea [facility] PAVFABRIZIO 1..840.114 350.1.13.10 4.2.7.2.686 [id number] [facility] 2020-03-18 00:00:00 2020-03-18 00:00:00 Telephone Aleida Pollard [facility] Health Surgical Specialti [facility] 1..840.114 350.1.13.10 4.2.7.2.686 [id number] [facility] 2020-03-17 00:00:00 2020-03-17 00:00:00 Outpatient R RADIOLOGY [facility] [id number] [facility] 2020-03-16 16:15:00 2020-03-16 16:15:00 Outpatient R ALEIDA POLLARD [facility] [id number] [facility] 2020-03-16 13:07:11 2020-03-16 13:29:55 Office Visit JonesDeni funkAleida [facility] Surgical Specialti [facility] 1.2840.114 350.1.13.10 4.2.7.2.686 [id number] [facility] 2020-02-23 00:00:00 2020-02-23 00:00:00 Outpatient R RADIOLOGY [facility] [id number] [facility] 2020-01-27 13:18:10 2020-01-27 13:38:10 Laboratory Only Lab, Ad[facility] [address] 1.0.114 350.1.13.10 4.2.7.2.686 [id number] [facility] 2020-01-27 13:20:00 2020-01-27 13:20:00 Outpatient R JEANNINE BILLINGSLEY [facility] [id number] [facility] 2020-01-03 19:31:00 2020-01-03 22:25:00 Emergency Carmen Driver [facility] 1.2840.114 350.1.13.10 4.2.7.2.686 [id number] [facility] 2019-12-17 13:23:34 2019-12-17 13:38:22 Office Visit Deni Jones [facility] 1.2840.114 350.1.13.10 4.2.7.2.686 [id number] [facility] 2019-12-17 13:30:00 2019-12-17 13:30:00 Outpatient R DENI JONES [facility] [id number] [facility] 2019-12-16 00:00:00 2019-12-16 00:00:00 Orders Only Doctor Unassigned, [place] [facility] 1.2.840.114 350.1.13.10 4.2.7.2.686 [id number] [facility] 2019-12-03 10:31:24 2019-12-03 10:59:37 Office Visit Deni Jones [facility] 1.2.840.114 350.1.13.10 4.2.7.2.686 [id number] [facility] 2019-12-03 10:45:00 2019-12-03 10:45:00 Outpatient R DENI JONES [facility] [id number] [facility] 2019-12-03 00:00:00 2019-12-03 00:00:00 Orders Only Doctor Unassigned, [place] [facility] 1.2.840.114 350.1.13.10 4.2.7.2.686 [id number] [facility] 2019-11-11 14:19:00 2019-11-11 23:59:00 Hospital Encounter Deni Jones [facility] 1.2.840.114 350.1.13.10 4.2.7.2.686 [id number] [facility] 2019-11-11 15:55:12 2019-11-11 16:22:35 Office Visit Deni Jones [facility] 1.2.840.114 350.1.13.10 4.2.7.2.686 [id number] [facility] 2019-11-11 15:55:12 2019-11-11 16:22:35 Office Visit Deni Jones [facility] 1.2.840.114 350.1.13.10 4.2.7.2.686 [id number] 2019-11-11 16:15:00 2019-11-11 16:15:00 Outpatient R ROBERT DENI [facility] [id number] [facility] 2019-11-11 00:00:00 2019-11-11 00:00:00 Telephone Deni Jones [facility] Health Surgical Specialti [facility] 1.2.840.114 350.1.13.10 4.2.7.2.686 [id number] [facility] 2018-12-24 00:00:00 2018-12-24 00:00:00 Orders Only Doctor Unassigned, [place] [facility] 1.2840.114 350.1.13.10 4.2.7.2.686 [id number] [facility] 2018-12-01 00:00:00 2018-12-01 00:00:00 Orders Only Doctor Unassigned, [place] [facility] 1.20.114 350.1.13.10 4.2.7.2.686 [id number] [facility] 2018-11-23 00:00:00 2018-11-23 00:00:00 Orders Only Doctor Unassigned, [place] [facility] 1.20.114 350.1.13.10 4.2.7.2.686 [id number] [facility] 2018-11-17 00:00:00 2018-11-17 00:00:00 Refill Julienne Castro [facility] 1.2.840.114 350.1.13.10 4.2.7.2.686 [id number] [facility] Results Test Description Test Time Test Comments Results Result Co mments Source [facility]59* Test Item Value Reference Range Interpretation Comme nts LIPASE (test code = 0374110273) 44 U/L 0-220 Lab Interpretation (test cod e = 17016-8) Normal [facility] [id number] 03:43:21* Test Item Value Reference Range Interpretation Comme nts WBC (test code = 6690-2) 10.24 See_Comment [Automated messa ge] The system which generated this result transmitted reference range: 4.30 - 11.10 10*3/?L. The reference range was not used to interpret this result as normal/abnormal. RBC (test code = 789-8) 4.70 See_Comment [Automated messa ge] The system which [...] g/dL 31.6-35.1 H RDW-SD (test code = 02422-8) 38.9 fL 39.0-49.9 L RDW-CV (test code = 788-0) 11.7 % 12.0-15.5 L PLT (test code = 777-3) 342 See_Comment [Automated messa ge] The system which generated this result transmitted reference range: 166 - 358 10*3/?L. The reference range was not used to interpret this result as normal/abnormal. MPV (test code = 47365-5) 10.3 fL 9.5-12.9 NRBC/100 WBC (test code = 5199199118) 0.0 See_Comment [Automated [email or web address] ssage] The system which generated this result transmitted reference range: 0.0 - 10.0 /100 WBCs. The reference range was not used to interpret this result as normal/abnormal. NRBC x10^3 (test code = 1475367889) See_Comment [Automated messa ge] The system which generated this result transmitted reference range: 10*3/?L. The reference range was not used to interpret this result as normal/abnormal. GRAN MAT (NEUT) % (test code = 770-8) 80.5 % IMM GRAN % (test code = 7492550850) 0.30 % LYMPH % (test code = 736-9) 11.5 % MONO % (test code = 5905-5) 6.5 % EOS % (test code = 713-8) 1.0 % BASO % (test code = 706-2) 0.2 % GRAN MAT x10^3(ANC) (test code = 0825325933) 8.24 10*3/uL 1.88-7.09 H IMM GRAN x10^3 (test code = 3317336275) 0.03 10*3/uL 0.00-0.06 LYMPH x10^3 (test code = 731-0) 1.18 10*3/uL 1.32-3.29 L MONO x10^3 (test code = 742-7) 0.67 10*3/uL 0.33-0.92 EOS x10^3 (test code = 711-2) 0.10 10*3/uL 0.03-0.39 BASO x10^3 (test code = 704-7) 0.01-0.07 Lab Interpretation (test code = 24295-8) [facility]normal [facility] W [id number] 02:47:351. ?No bowel obstruction, appendicitis, free air, or focal loculatedintraperitoneal fluid collections.2. Recently ruptured or involuting cyst in the right ovary with a smallamount of fluid also seen in the right adnexal region. RL: 135 [facility]: [id number] END OF REPORT ORDERING PHYSICIAN: CARMEN DRIVER [...] - 01/03/2020 9:48 PM CDTORDERING PHYSICIAN: CARMEN BLANCAMACLINICAL INFORMATION: Abd pain, acute, generalized EPIGASTRIC PAIN [...] also seen in the right adnexal region.RL: [facility]: [id number] [facility]PORT [id number] 01:46:00* Test Item Value Reference Range Interpretation Comme nts TROPONIN I (test code = 0280351660) 0.000 ng/mL See_Comment [Automated message] The system [...] biotin. ? Lab Interpretation (test code = 48620-3) Normal [facility]OLIC PANEL (89981)2020-01-04 01:34:00* Test Item Value Reference Range Interpretation Comme nts NA (test code = 1505501859) 136 mmol/L 135-145 K (test code = 4450192389) 3.4 mmol/L 3.5-5 L CL (test code = 5051788160) 101 mmol/L 98-108 CO2 TOTAL (test code = 6271689435) 27 mmol/L 23-31 AGAP (test code = 5748985753) 2-16 BUN (test code = 0737581852) 12 mg/dL 7-23 GLUCOSE (test code = 3879031801) 86 mg/dL 70-110 CREATININE (test code = 2545848345) 0.52 mg/dL 0.5-1.04 TOTAL BILI (test code = 2308433138) 0.4 mg/dL 0.1-1.1 CALCIUM (test code = 3441809339) 8.6 mg/dL 8.6-10.6 T PROTEIN (test code = 6293512528) 7.0 g/dL 6.3-8.2 ALBUMIN (test code = 6646462282) 3.7 g/dL 3.5-5 ALK PHOS (test code = 1192788936) 67 U/L 34-122 ALTv (test code = 1742-6) 25 U/L 5-35 AST(SGOT) (test code = 7533923947) 26 U/L 13-40 eGFR Calculation (Non-) (test code = 8090829901) mL/min/1.73m2 eGFR Calculation () (test code = 9663701469) mL/min/1.73m2 CONNOR (test code = CONNOR) Association [...] imaging tests). Lab Interpretation (test code = 94374-2) [facility]normal [facility]2020-[facility] 01:34:00* Test Item Value Reference Range Interpretation Comme nts LIPASE (test code = 2705756481) 57 U/L 0-220 Lab Interpretation (test cod e = 36617-1) Normal [facility] WITH [id number] 01:23:00* Test Item Value Reference Range Interpretation [...] 34.2 g/dL 31.6-35.1 RDW-SD (test code = 95408-9) 39.6 fL 39-49.9 RDW-CV (test code = 788-0) 12.4 % 12-15.5 PLT (test code = 777-3) See_Comment [Automated Memrisea ge] The system which generated this result transmitted reference range: 166 - 358 10*3/?L. The reference range was not used to interpret this result as normal/abnormal. MPV (test code = 36088-7) 10.4 fL 9.5-12.9 NRBC/100 WBC (test code = 8591703223) See_Comment [Automated me ssage] The system which generated this result transmitted reference range: 0.0 - 10.0 /100 WBCs. The reference range was not used to interpret this result as normal/abnormal. NRBC x10^3 (test code = 9498070026) <0.01 See_Comment [Automated me ssage] The system which generated this result transmitted reference range: 10*3/?L. The reference range was not used to interpret this result as normal/abnormal. GRAN MAT (NEUT) % (test code = 770-8) 52.3 % IMM GRAN % (test code = 1611313076) 0.20 % LYMPH % (test code = 736-9) 34.0 % MONO % (test code = 5905-5) 9.4 % EOS % (test code = 713-8) 3.4 % BASO % (test code = 706-2) 0.7 % GRAN MAT x10^3(ANC) (test code = 4585325653) 4.20 10*3/uL 1.88-7.09 IMM GRAN x10^3 (test code = 7697814466) <0.03 0-0.06 LYMPH x10^3 (test code = 731-0) 2.74 10*3/uL 1.32-3.29 MONO x10^3 (test code = 742-7) 0.76 10*3/uL 0.33-0.92 EOS x10^3 (test code = 711-2) 0.27 10*3/uL 0.03-0.39 BASO x10^3 (test code = 704-7) 0.06 10*3/uL 0.01-0.07 [facility]+ VW [id number] 19:46:50 HISTORY: ?Pain. FINDINGS: AP, lateral, oblique views of right ankle are obtained andcompared to 08/02/2018 study. Ankle mortise is intact. No talar dome lesionvisualized. No acute fracture or dislocation. No significant changes ofarthritis or aggressive bone lesions seen. No ankle joint effusion. No heelspur. CONCLUSIONS: Normal study. [facility], Radiant Results Inft User - 11/11/2019 2:47 PM CDTHISTORY: Pain.FINDINGS: AP, lateral, oblique views of right ankle are obtained andcompared to 08/02/2018 study. Ankle mortise is intact. No talar dome lesionvisualized. No acute fracture or dislocation. No si gnificant changes ofarthritis or aggressive bone lesions seen. No ankle joint effusion. No heelspur.CONCLUSIONS: Normal study.[facility]"
[2023-11-24 14:31] LABS: Absolute Eosinophils 0.1 K/uL (0-0.5); Absolute Lymphocytes (CBC) 2.1 K/uL (0.7-4.9); Absolute Monocytes 0.7 K/uL (0.1-1.3); Basophils % 0.5 % (0-1.3); Eosinophils % 0.8 % (0-4.4); Hematocrit 38.6 % (36.0-45.0); Hemoglobin 13.3 g/dL (12.0-15.0); Lymphocytes % 30.4 % (15.3-44.8); MCH 31.7 pg (27.0-35.0); MCHC 34.3 g/dL (32.0-36.0); MCV 92.4 fL (80-100); MPV 8.4 fL (7.6-11.3); Monocytes % 9.6 % (3.3-12.3); Neutrophils % 58.7 % (41.7-73.7); Nucleated Red Blood Cells % 0.2 % (0-0); Platelets 322 thou/uL (152-406); RBC Red Blood Cell Count 4.18 M/uL (3.86-4.86)
--- NOTE | 2023-11-24 14:38 | RAD REPORT ---
EXAM DESCRIPTION: RAD - Chest Single View - 11/24/2023 2:28 pm CLINICAL HISTORY: CHEST PAIN COMPARISON: <Comparisons> FINDINGS: Lines: None. Lungs: No evidence of edema or pneumonia. Nonspecific mild prominence of the pulmonary interstitium b ut nothing focal. Pleural: No significant pleural effusions or pneumothorax. Cardiac: The heart size is within normal limits. Mediastinum: Within normal limits. Bones: No acute fractures. Other: None IMPRESSION: No acute cardiopulmonary disease.
[2023-11-24 14:52] LABS: ALT/SGPT 47 U/L (13-56); AST/SGOT 28 U/L (15-37); Albumin 3.5 g/dL (3.4-5.0); Albumin/Globulin Ratio 1.1 (1.1-1.8); Alkaline Phosphatase 54 U/L (45-117); Anion Gap 7.8 mEq/L (5.0-15.0); BUN Blood Urea Nitrogen 10 mg/dL (7-18); Bicarbonate 26 mEq/L (21-32); Bilirubin Total 0.3 mg/dL (0.2-1.0); Globulin 3.3 g/dL (2.3-3.5); Glomerular Filtration Rate 114 ml/min (=/>90); Glucose Level 101 mg/dL (74-106); Magnesium 1.8 mg/dL (1.6-2.4); NT PRO-BNP 76 pg/mL (<125); Potassium 3.8 mEq/L (3.5-5.1); Protein, Total 6.8 g/dL (6.4-8.2); Sodium Level 140 mEq/L (136-145); Troponin High Sensitivity 4.3 pg/mL (<58.9)
[2023-11-24 14:54] LABS: PT Prothrombin Time 11.7 SECONDS (9.4-12.5); Protime INR 1.05
[2023-11-24 15:10] LABS: Bilirubin Direct < 0.2 mg/dL (0-0.2); Bilirubin Indirect, Calculated 0.1 mg/dL (0.2-0.8)
--- NOTE | 2023-11-24 16:59 | ER ---
Nurse's Notes [facility] Name: Nehal Snow Age: 47 yrs Sex: Female : 1975 Arrival Date: 11/24/2023 Time: 14:01 Bed 18 Private MD: Diagnosis: Chest pain, unspecified Presentation: 11/23 14:04 Chief complaint: EMS states: chest pain mid sternal that radiates to right shoulder and me1 jaw with SOB and nausea. 20 g LAC, given ASA 324mg, nitro x 2 and zofran 4 mg IV. Vitals wnl. Coronavirus screen: Vaccine status: Patient reports receiving the 2nd dose of the covid vaccine. Ebola Screen: No symptoms or risks identified at this time. Initial Sepsis Screen: Does the patient meet any 2 criteria? No. Patient's initial sepsis screen is negative. Does the patient have a suspected source of infection? No. Patient's initial sepsis screen is negative. Risk Assessment: Do you want to hurt yourself or someone else? Patient reports no desire to harm self or others. Onset of symptoms was November 24, 2023 at 11:30. 14:04 Method Of Arrival: EMS: [facility] [place] Acuity: DESMOND 3 me1 Triage Assessment: 14:07 General: Appears uncomfortable, well groomed, well developed, well nourished, Behavior me1 is calm, cooperative, appropriate for age. Pain: Complains of pain in chest Pain radiates to right jaw Pain currently is 2 out of 10 on a pain scale. Quality of pain is described as pressure, Pain began suddenly, 3 hours ago. Is continuous. EENT: No signs and/or symptoms were reported regarding the EENT system. Neuro: Level of Consciousness is awake, alert, obeys commands, Oriented to person, place, time, situation, Appropriate for age. Cardiovascular: Patient's skin is warm and dry. Respiratory: Airway is patent Respiratory effort is even, unlabored, Respiratory pattern is regular, symmetrical. GI: Reports nausea. : No signs and/or symptoms were reported regarding the genitourinary system. Derm: Skin is intact, is healthy with good turgor, Skin is pink, warm \T\ dry. Musculoskeletal: No signs and/or symptoms reported regarding the musculoskeletal system. 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 - Infectious Disease History:: Denies. - Social history:: Smoking status: Reported history of juuling and/or vaping. Screenin:04 [facility] ED Fall Risk Assessment (Adult) History of falling in the last 3 months, me1 including since admission No falls in past 3 months (0 pts) Confusion or Disorientation No (0 pts) Intoxicated or Sedated No (0 pts) Impaired Gait No (0 pts) Mobility Assist Device Used No (0 pt) Altered Elimination No (0 pt) Score/Fall Risk Level 0 - 2 = Low Risk Maintained a safe environment, Provided non-skid footwear, Hourly rounding (assess needs \T\ fall precautionary measures) done. Abuse screen: Denies threats or abuse. Nutritional screening: No deficits noted. Tuberculosis screening: No symptoms or risk factors identified. Assessment: 14:04 General: Appears uncomfortable, well groomed, well developed, well nourished, Behavior me1 is calm, cooperative, appropriate for age, Reports chest pain that radiates to right shoulder and right jaw. Pain: Complains of pain in chest Pain radiates to right jaw Pain currently is 2 out of 10 on a pain scale. Quality of pain is described as pressure, sharp, Pain began gradually, Is continuous. Neuro: Level of Consciousness is awake, alert, obeys commands, Oriented to person, place, time, situation, Appropriate for age. Cardiovascular: Reports chest pain, nausea, shortness of breath, Patient's skin is warm and dry. Respiratory: Reports shortness of breath at rest Airway is patent Respiratory effort is even, unlabored, Respiratory pattern is regular, symmetrical. GI: Reports nausea. : No signs and/or symptoms were reported regarding the genitourinary system. EENT: No signs and/or symptoms were reported regarding the EENT system. Derm: Skin is intact, is healthy with good turgor, Skin is pink, warm \T\ dry. Musculoskeletal: No signs and/or symptoms reported regarding the musculoskeletal system. Vital Signs: 14:00 BP 116 / 64; Pulse 70; Resp 16; Pulse Ox 96% on R/A; me1 14:04 BP 128 / 79; Pulse 80; Resp 16; Temp 98.6; Pulse Ox 97% ; Weight 77.11 kg; Height 5 ft. me1 4 in. ; Pain 2/10; 15:00 BP 127 / 98; Pulse 71; Resp 17; Pulse Ox 100% on R/A; me1 16:00 BP 129 / 80; Pulse 65; Resp 16; Pulse Ox 100% on R/A; me1 17:03 BP 136 / 85; Pulse 80; Resp 16; Temp 98.4; Pulse Ox 99% ; me1 14:04 Body Mass Index 29.18 (77.11 kg, 162.56 cm) me1 14:04 Pain Scale: Adult [facility] [place] [place] Course: 14:04 Patient arrived in ED. me1 14:04 Zenia Leal PA-C is PHCP. sb4 14:04 Duke Fraire MD is Attending Physician. sb4 14:04 Patient has correct armband on for positive identification. Bed in low position. Call ct1 light in reach. Side rails up X2. Provided Education on: POC. Verbalized understanding. . Client placed on continuous cardiac and pulse oximetry monitoring. NIBP monitoring applied. tenter frame operator on. Pulse ox on. NIBP on. 14:04 No provider procedures requiring assistance completed. Patient maintains SpO2 ct1 saturation greater than 95% on room air. 14:07 Triage completed. me1 14:07 Arm band placed on Patient placed in an exam room. me1 14:29 Basic Metabolic Panel Sent. me1 14:29 CBC with Diff Sent. me1 14:29 LFT's Sent. me1 14:29 Magnesium Sent. me1 14:30 XRAY Chest (1 view) In Process Unspecified. EDMS 14:30 NT PRO-BNP Sent. me1 14:30 PT-INR Sent. me1 14:30 Troponin HS Sent. me1 14:30 Maintain EMS IV. Dressing intact. Good blood return noted. Site clean \T\ dry. Gauge \T\ me 1 site: 20g LAC. Flushed with 10 mL NS. 14:30 Initial lab(s) drawn, by me, sent to lab. EKG done, by ED staff, reviewed by Zenia cantu1 Elvis MONTGOMERY. 14:32 Amina Rausch, RN is Primary Nurse. me1 16:26 Troponin HS Sent. me1 17:12 IV discontinued, intact, bleeding controlled, No redness/swelling at site. Pressure me1 dressing applied. Administered Medications: No medications were administered Medication: 14:04 VIS not applicable for this client. me1 Outcome: 16:58 Discharge ordered by . jo ann 17:12 Discharged to home ambulatory, with family, me1 17:12 Condition: stable 17:12 Discharge instructions given to patient, Instructed on discharge instructions, follow up and referral plans. Demonstrated understanding of instructions, follow-up care, 17:12 Patient left the ED. me1 Signatures: Dispatcher [employer] EDMS Zenia Leal PA-C PA-C sb4 Eddleman, Michelle, RN RN me1 Corrections: (The following items were deleted from the chart) 14:32 14:04 Chief complaint: EMS states: chest pain mid sternal that radiates to right me1 shoulder and jaw with SOB and nausea. 20 g LAC, given ASA 324mg, nitro x 2 and zofran 4 mg IV. Vitals wnl. me1
--- NOTE | 2023-11-24 16:59 | EDPHYS ---
Physician Documentation [facility] Name: Nehal Snow Age: 47 yrs Sex: Female : 1975 Arrival Date: 11/24/2023 Time: 14:01 Bed 18 Private MD: ED Physician Duke Fraire HPI: 11/23 14:10 This 47 yrs old Female presents to ER via EMS with complaints of Chest Pain > 30 y/o. sb4 14:10 The patient or guardian reports chest pain that is located primarily in the substernal sb4 area. Onset: this morning. The pain radiates to the right shoulder, right neck. Associated signs and symptoms: Pertinent positives: headache, nausea, palpitations, shortness of breath. EMS care prior to arrival includes: aspirin, nitroglycerin, x 2 with partial relief of the chest pain. The patient has not experienced similar symptoms in the past. The patient has not recently seen a physician. 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 - Infectious Disease History:: Denies. - Social history:: Smoking status: Reported history of juuling and/or vaping. ROS: 14:10 Constitutional: Negative for fever, chills, and weight loss, sb4 14:10 Cardiovascular: Positive for chest pain, 14:10 All other systems are negative, Exam: 14:10 Constitutional: This is a well developed, well nourished patient who is awake, alert, sb4 and in no acute distress. Head/Face: Normocephalic, atraumatic. Eyes: Extra-ocular motions intact. Periorbital areas with no swelling, redness, or edema. ENT: Mucous membranes moist. Cardiovascular: Regular rate and rhythm with a normal S1 and S2. Respiratory: Lungs have equal breath sounds bilaterally, clear to auscultation and percussion. No rales, rhonchi or wheezes noted. No increased work of breathing, no retractions or nasal flaring. Abdomen/GI: Soft, non-tender, no distension. Skin: Warm, dry with normal turgor. Normal color with no rashes, no lesions, and no evidence of cellulitis. MS/ Extremity: Pulses equal, no cyanosis. Neurovascular intact. Full, normal range of motion. Vital Signs: 14:00 BP 116 / 64; Pulse 70; Resp 16; Pulse Ox 96% on R/A; me1 14:04 BP 128 / 79; Pulse 80; Resp 16; Temp 98.6; Pulse Ox 97% ; Weight 77.11 kg; Height 5 ft. me1 4 in. ; Pain 2/10; 15:00 BP 127 / 98; Pulse 71; Resp 17; Pulse Ox 100% on R/A; me1 16:00 BP 129 / 80; Pulse 65; Resp 16; Pulse Ox 100% on R/A; me1 17:03 BP 136 / 85; Pulse 80; Resp 16; Temp 98.4; Pulse Ox 99% ; me1 14:04 Body Mass Index 29.18 (77.11 kg, 162.56 cm) me1 14:04 Pain Scale: Adult me1 MDM: 14:04 Patient medically screened. sb4 15:14 Scoring Tools HEART Score: History: ECG: Age: Risk Factors: 1 or 2 risk factors (1), sb4 Troponin: Total Score = 2. 16:57 The patient was not given aspirin in the Emergency Department. Administered by EMS. sb4 Data reviewed: vital signs, nurses notes, EMS record, lab test result(s), EKG, radiologic studies, and as a result, I will discharge patient. Consideration of Admission/Observation Escalation of care including admission/observation considered. 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 11/23 14:04 Order name: Basic Metabolic Panel; Complete Time: 15:13 sb4 11/23 14:04 Order name: CBC with Diff; Complete Time: 14:44 sb4 11/23 14:04 Order name: LFT's; Complete Time: 15:13 sb4 11/23 14:04 Order name: Magnesium; Complete Time: 15:13 sb4 11/23 14:04 Order name: NT PRO-BNP; Complete Time: 15:13 sb4 11/23 14:04 Order name: PT-INR; Complete Time: 14:59 sb4 11/23 14:04 Order name: Troponin HS; Complete Time: 15:13 sb4 11/23 14:04 Order name: Test, Serum; Complete Time: 15:14 sb4 11/23 16:20 Order name: Troponin HS; Complete Time: 16:54 me1 11/23 14:04 Order name: XRAY Chest (1 view); Complete Time: 14:42 sb4 11/23 14:04 Order name: Cardiac monitoring; Complete Time: 14:29 sb4 11/23 14:04 Order name: EKG - Nurse/Tech; Complete Time: 14:29 sb4 11/23 14:04 Order name: IV Saline Lock; Complete Time: 14:29 sb4 11/23 14:04 Order name: Labs collected and sent; Complete Time: 14:29 sb4 11/23 14:04 Order name: O2 Per Protocol; Complete Time: 14:29 sb4 11/23 14:04 Order name: O2 Sat Monitoring; Complete Time: 14:29 sb4 11/23 15:15 Order name: Misc. Order: repeat troponin at 1630; Complete Time: 16:20 sb4 Administered Medications: No medications were administered Disposition: 18:39 Co-signature as Attending Physician, Duke Fraire MD I reviewed the patient's care rn provided by the Advanced Practice Provider and agree with the diagnosis and treatment plan. Disposition Summary: 11/24/23 16:58 Discharge Ordered Notes: Location: Home sb4 Problem: new sb4 Symptoms: have improved sb4 Condition: Stable sb4 Diagnosis - Chest pain, unspecified sb4 Followup: sb4 - With: Private Physician - When: 2 - 3 days - Reason: Recheck today's complaints, Re-evaluation by your physician Discharge Instructions: - Discharge Summary Sheet sb4 - Nonspecific Chest Pain, Adult, [id number] sb4 Forms: - Patient Portal Instructions sb4 - Leadership Thank You Letter sb4 Signatures: Dispatcher [employer] Duke Adame MD MD rn Brown, Sophia, PA-C PAStephenieC sb4 Amina Rausch RN RN me1 Corrections: (The following items were deleted from the chart) 14:05 14:05 BASIC METABOLIC PANEL+C.LAB.BRZ ordered. EDMS EDMS 14:05 14:05 CBC+H.LAB.BRZ ordered. EDMS EDMS 14:05 14:05 HEPATIC FUNCTION+C.LAB.BRZ ordered. EDMS EDMS 14:05 14:05 MAGNESIUM+C.LAB.BRZ ordered. EDMS EDMS 14:05 14:05 PROBNP+C.LAB.BRZ ordered. EDMS EDMS 14:05 14:05 PROTIME (+INR)+COAG.LAB.BRZ ordered. EDMS EDMS 14:05 14:05 Troponin High Sensitivity+C.LAB.BRZ ordered. EDMS EDMS 14:05 14:05 TEST, SERUM+SC.LAB.BRZ ordered. EDMS EDMS 14:05 14:05 Chest Single View+RAD.RAD.BRZ ordered. EDMS EDMS
[2023-11-24 17:32] VITALS: BP 136/85; TEMP 98.4; O2SAT 99
== END 2023-11-24 17:12 | disposition home or self-care (01) ==
LOC: ER 14:01
DX: R07.9 Chest pain, unspecified (principal); I10 Essential (primary) hypertension; I48.91 Unspecified atrial fibrillation; R51.9 Headache, unspecified
CPT/HCPCS: 36415; 71045; 80048; 80076; 83735; 83880; 84484; 84703; 85025; 85610; 93005; 99284